=== PATIENT | male | born 1950 | race Caucasian/White ===

== ENCOUNTER 2017-06-21 15:46 | Inpatient (IN) | payer OTHER ==
[2017-06-21 17:38] VITALS: BMI 27.4
--- NOTE | 2017-06-21 18:51 | HP ---
CIWA Score - CIWA Score Nausea/Vomitin-No Nausea/No Vomiting Muscle Tremors: None Anxiety: 1-Mildly Anxious Agitation: 1-Slight > Activity Paroxysmal Sweats: No Perspiration Orientation: 0-Oriented Tacttile Disturbances: 0-None Auditory Disturbances: 0-None Visual Disturbances: 0-None Headache: 0-None Present CIWA-Ar Total Score: 2 Admission ROS [facility] - Ebola screening Have you traveled outside of the country in the last 21 days: No Have you had contact with anyone from an Ebola affected area: No Have you been sick,other than usual withdrawal symptoms: No Do you have a fever: No Patient History - Smoking Cessation Smoking history: Smoker current status UNK Have you smoked in the past 12 months: No Hx Chewing Tobacco Use: No Initiated information on smoking cessation: No Admission Physical Exam [facility] - Vital Signs Vital Signs: Vital Signs - 24 hr 06/21/17 17:35 Temperature 98.1 F Pulse Rate 79 Respiratory 18 Rate Blood Pressure 135/79 Screened but not Admitted - Documentation of Visit Screened but not Admitted: Yes Left Prior to Completion of Assessment: No Insurance Authorization Denied: No Patient Does Not Meet Criteria for Admission: No Level of Care Recommended at this Time: ER Evaluation/Care Alternative Treatment/Correction Info Provided: No Additional Information/Explanation: 67 years old male first admission to [facility], requests xanax, methadone detox, denies alcohol drinking, ciwa=2, reports xanax prescription monthly last visit 05/31/17, on methadone 50 mg daily, last dose , patient agrees to discuss xanax taper with primary care provider and methadone taper with program. patient states he is going to have a seizure, ambulance was called, information provided to er. [facility] Breath Alcohol Content Breath Alcohol Content: 0 Vital Signs - Vital Signs Vital Signs Refused: No Temperature: 98.1 F Temperature Source: Oral Pulse Rate: 79 Respiratory Rate: 18 Blood Pressure: 135/79 BP Location: Left Arm Blood Pressure Position: Sitting - Height Height: 5 ft 4 in - Weight Weight: 160 lb Weight Measurement Method: Standing Scale Body Mass Index (BMI): 27.4 - Bowel Function Bowel Movement: Yes Urine Drug Screen - Control Is Test Valid: Yes - Results Drug Screen Negative: No Urine Drug Screen Results: BZO-Benzodiazepines, MTD-Methadone
--- NOTE | 2017-06-22 00:46 | HP ---
CIWA Score - CIWA Score Nausea/Vomitin Muscle Tremors: 3 Anxiety: 2 Agitation: 1-Slight > Activity Paroxysmal Sweats: 1-Minimal Palms Moist Orientation: 2-Disoriented Date<2 days Tacttile Disturbances: 0-None Auditory Disturbances: 0-None Visual Disturbances: 1-Very Mild Sensitivity Headache: 1-Very Mild CIWA-Ar Total Score: 13 Admission ROS S - HPI Chief Complaint: Withdrawal symptoms Allergies/Adverse Reactions: Allergies Allergy/AdvReac Type Severity Reaction Status Date / Time No Known Allergies Allergy Verified 06/21/17 20:57 History of Present Illness: 67 y.o. man with a history of Xanax dependence is here seeking detox services. He is prescribed Xanax by his psychiatrist and reports he is taking them more than they are prescribed. He last completed detox 2 years ago. Currently enrolled in [facility]. Exam Limitations: No Limitations - Ebola screening Have you traveled outside of the country in the last 21 days: No Have you had contact with anyone from an Ebola affected area: No Have you been sick,other than usual withdrawal symptoms: No Do you have a fever: No - Review of Systems Constitutional: Chills, Diaphoresis, Loss of Appetite, Changes in sleep EENT: reports: Tearing Respiratory: reports: No Symptoms reported Cardiac: reports: No Symptoms Reported GI: reports: Abdominal cramping : reports: No Symptoms Reported Musculoskeletal: reports: No Symptoms Reported Integumentary: reports: No Symptoms Reported Neuro: reports: Tremors Endocrine: reports: No Symptoms Reported Hematology: reports: Anemia Psychiatric: reports: Mood/Affect Appropiate, Anxious, Depressed Other Systems: Reviewed and Negative Patient History - Patient Medical History Hx Anemia: No Hx Asthma: No Hx Chronic Obstructive Pulmonary Disease (COPD): No Hx Cancer: No Hx Cardiac Disorders: No Hx Congestive Heart Failure: No Hx Hypertension: Yes Hx Hypercholesterolemia: No Hx Pacemaker: No HX Cerebrovascular Accident: No Hx Seizures: No Hx Dementia: No Hx Diabetes: No Hx Gastrointestinal Disorders: No Hx Liver Disease: No Hx Genitourinary Disorders: No Hx Sexually Transmitted Disorders: No Hx Thyroid Disease: No Hx Human Immunodeficiency Virus (HIV): No Hx Hepatitis C: No Hx Depression: Yes Hx Suicide Attempt: No Hx Bipolar Disorder: No Hx Schizophrenia: No - Patient Surgical History Past Surgical History: Yes Other Surgical History: Cataract removal sx-left eye 05/2017 Anesthesia Reaction: No - PPD History Previous Implant?: Yes Documented Results: Negative w/o proof PPD to be Administered?: Yes - Reproductive History Patient is a Female of Child Bearing Age (11 -55 yrs old): No - Smoking Cessation Smoking history: Current every day smoker Have you smoked in the past 12 months: Yes Aproximately how many cigarettes per day: 15 Hx Chewing Tobacco Use: No Initiated information on smoking cessation: Yes 'Breaking Loose' booklet given: 06/22/17 - Substance & Tx. History Hx Alcohol Use: No Hx Substance Use: Yes Substance Use Type: Heroin, Prescribed (Xanax) Hx Substance Use Treatment: Yes (Detox: 2014; Rehab: 2015; currently in a [facility] ) - Substances Abused Alprazolam (Xanax) Route: Oral Frequency: Daily Amount used: 24mg Age of first use: 21 Date of Last Use: 06/21/17 Family Disease History - Family Disease History Family Disease History: Diabetes: Mother, CA: Father (Colon CA ), Other: Brother (Heroin dependence; ) Admission Physical Exam [facility] - Vital Signs Vital Signs: Vital Signs - 24 hr 06/21/17 06/21/17 17:35 18:59 Temperature 98.1 F 98.1 F Pulse Rate 79 79 Respiratory 18 18 Rate Blood Pressure 135/79 135/79 - Physical General Appearance: Yes: Disheveled, Anxious HEENTM: Yes: Normocephalic, Normal Voice Respiratory: Yes: Chest Non-Tender, Lungs Clear, Normal Breath Sounds, No Respiratory Distress, No Accessory Muscle Use Neck: Yes: No masses,lesions,Nodules, Trachea in good position Breast: Yes: Breast Exam Deferred Cardiology: Yes: Regular Rhythm, Regular Rate Abdominal: Yes: Non Tender, Flat, Soft Genitourinary: Yes: Other (No complaints reported) Back: Yes: Normal Inspection Musculoskeletal: Yes: Joint Stiffness Extremities: Yes: Normal Inspection, Normal Range of Motion, Non-Tender Neurological: Yes: Alert, Normal Mood/Affect, Normal Response Integumentary: Yes: Normal Color, Dry, Warm Lymphatic: Yes: Within Normal Limits - Diagnostic (1) Opioid dependence on agonist therapy Current Visit: Yes Status: Chronic (2) Sedative, hypnotic or anxiolytic dependence with withdrawal, uncomplicated Current Visit: Yes Status: Chronic (3) Nicotine dependence Current Visit: Yes Status: Chronic Qualified Code(s): - (4) Hypertension Current Visit: Yes Status: Chronic (5) Hard of hearing Current Visit: Yes Status: Chronic Cleared for Admission [facility] - Detox or Rehab [facility] Level of Care: Medically Managed Detox Regimen/Protocol: Valium BHS Breath Alcohol Content Breath Alcohol Content: 0 Vital Signs - Vital Signs Vital Signs Refused: No Temperature: 98.1 F Temperature Source: Oral Pulse Rate: 79 Respiratory Rate: 16 Blood Pressure: 135/79 BP Location: Left Arm Blood Pressure Position: Sitting - Height Height: 5 ft 4 in - Weight Weight: 160 lb Weight Measurement Method: Standing Scale Body Mass Index (BMI): 27.4 Urine Drug Screen - Results Drug Screen Negative: No Urine Drug Screen Results: BZO-Benzodiazepines, MTD-Methadone
[2017-06-22] MEDS ORDERED: IBUPROFEN 400 MG TABLET (FP) PO PRN (01:13)
[2017-06-22] MEDS ORDERED: ACETAMINOPHEN 325 MG TABLET (FP) PO PRN (01:13)
[2017-06-22] MEDS ORDERED: MAG HYDROX/AL HYDROX/SIMETH 30 ML UNIT-DOSE CUP PO PRN (01:13)
[2017-06-22] MEDS ORDERED: P-EPHED 60MG/TRIPROLIDI 2.5MG TABLET PO PRN (01:13)
[2017-06-22] MEDS ORDERED: MAGNESIUM CITRATE 300 ML BOTTLE PO PRN (01:13)
[2017-06-22] MEDS ORDERED: MENTHOL/PHENOL 1 EACH UD MM PRN (01:13)
[2017-06-22] MEDS ORDERED: guaiFENesin/D-METHORPHAN HB 10 ML UNIT-DOSE CUPS PO PRN (01:13)
[2017-06-22] MEDS ORDERED: LOPERAMIDE HCL 2 MG CAPSULE PO PRN (01:13)
[2017-06-22] MEDS ORDERED: diazePAM 5 MG TABLET PO ONE (01:13)
[2017-06-22] MEDS: diphenhydrAMINE HCL 50 MG CAPSULE PO PRN (01:41)
[2017-06-22] MEDS: diazePAM 5 MG TABLET PO SCH ×3 (05:36→22:16)
[2017-06-22] MEDS: NICOTINE POLACRILEX 2 MG GUM BC PRN ×2 (05:55→09:41)
[2017-06-22] MEDS ORDERED: METHADONE HCL 40 MG DISPERSABLE TABLET PO SCH (07:30)
[2017-06-22] MEDS ORDERED: METHADONE HCL 10 MG TABLET ONE (07:52)
[2017-06-22] MEDS ORDERED: METHADONE HCL 40 MG DISPERSABLE TABLET ONE (07:53)
[2017-06-22] MEDS: METHADONE 40 MG, METHADONE 10 MG PO SCH (07:57)
[2017-06-22] MEDS: MAGNESIUM HYDROX 2400MG/30ML ORAL SUSPENSION 30 ML CUP PO PRN (07:57)
[2017-06-22] MEDS: diazePAM 5 MG TABLET PO PRN ×2 (09:41→16:35)
[2017-06-22] MEDS: PRENATAL VITAMINS W/ FOLIC ACID TABLET (FP) PO SCH (09:41)
[2017-06-22] MEDS: NICOTINE 14 MG/24 HOURS TOPICAL PATCH TD SCH (09:43)
[2017-06-22 12:09] LABS: URINE APPEARANCE CLEAR; URINE BILIRUBIN NEGATIVE (NEGATIVE); URINE BLOOD NEGATIVE (NEGATIVE); URINE COLOR LTYELLOW; URINE GLUCOSE (UA) NEGATIVE (NEGATIVE); URINE KETONE NEGATIVE (NEGATIVE); URINE LEUK ESTERASE NEGATIVE (NEGATIVE); URINE NITRITE NEGATIVE (NEGATIVE); URINE PROTEIN NEGATIVE (NEGATIVE); URINE UROBILINOGEN NEGATIVE mg/dL (0.2-1.0)
--- NOTE | 2017-06-22 12:21 | PN ---
[facility] CIWA - CIWA Score Nausea/Vomitin Muscle Tremors: 4-Moderate,w/Arms Extend Anxiety: 3 Agitation: 2 Paroxysmal Sweats: 3 Orientation: 0-Oriented Tacttile Disturbances: 2-Mild Itch/Numbness/Burn Auditory Disturbances: 2-Mild Harshness/Frighten Visual Disturbances: 2-Mild Sensitivity Headache: 0-None Present CIWA-Ar Total Score: 21 BHS Progress Note (SOAP) Subjective: Nausea, Constipation, Sweating, Hot / Cold Sensations, Tremors. Objective: PT. A & O X 3, OBSERVED AMBULATING ON UNIT. NO ACUTE DISTRESS. PT. DENIES CHEST PAIN. 06/22/17 12:17 Vital Signs Temperature 97.5 F L 06/22/17 09:16 Pulse Rate 87 06/22/17 09:16 Respiratory Rate 18 06/22/17 09:16 Blood Pressure 160/98 06/22/17 09:16 O2 Sat by Pulse Oximetry (%) 06/22/17 12:20 ADMISSION LABS NOTED. ADMISSION RPR AND UA RESULTS PENDING. Assessment: 06/22/17 12:19 WITHDRAWAL SYMPTOMS. Plan: CONTINUE DETOX. REPEAT CBC ON 06/23/2017 FOR ABNORMAL ADMISSION PLATELET AND WBC VALUES. COLACE, 100 MG PO BID, PRN MOM PO FOR CONSTIPATION.
[2017-06-22] MEDS: DOCUSATE SODIUM 100 MG CAPSULE (FP) PO SCH ×2 (12:30→22:16)
--- NOTE | 2017-06-22 12:40 | CONSULT ---
[facility] Psychiatric Consult - Data Date of interview: 06/22/17 Admission source: [facility] Identifying data: First admission to 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 Substance Abuse History: Confirmed by patient in this interview. Smoking Cessation. Smoking history: Current every day smoker. Have you smoked in the past 12 months: Yes. Aproximately how many cigarettes per day: 15. Hx Chewing Tobacco Use: No. Initiated information on smoking cessation: Yes. 'Breaking Loose' booklet given: 06/22/17. - Substance & Tx. History. Hx Alcohol Use: No. Hx Substance Use: Yes. Substance Use Type: Heroin, Prescribed (Xanax). Hx Substance Use Treatment: Yes (Detox: 2014; Rehab: 2015; currently in a [facility] ) . - Substances Abused. Alprazolam (Xanax). Route: Oral. Frequency: Daily. Amount used: 24mg. Age of first use: 21. Date of Last Use: 06/21/17 Medical History: Hypertension,bronchial asthma and a history of thrombocytopenia (self-report).Noted recent history of eye surgery (extraction of cataracts in left eye).Decreased hearing. Psychiatric History: No reported history of psychiatric hospitalizations.Diagnosed with Bipolar Disorder.Prescribed xanax,seroquel and depakote (doses not recalled).Mr Mcmanus reports OPD care at the [facility] mental health clinic in [facility].He endorses adequate adherence to outpatient care and he denies history of suicide attempts.Patient is currently on methadone maintenance (50 mg/day) at the [facility] in the [place]. Physical/Sexual Abuse/Trauma History: Patient denies. Additional Comment: Urine Drug Screen Results: BZO-Benzodiazepines, MTD- Methadone.Noted. Mental Status Exam - Mental Status Exam Alert and Oriented to: Time, Place, Person Cognitive Function: Good Patient Appearance: Well Groomed Mood: Hopeful, Euthymic Affect: Appropriate, Normal Range Patient Behavior: Fatigued, Appropriate, Cooperative Speech Pattern: Clear Voice Loudness: Normal Thought Process: Intact, Goal Oriented Thought Disorder: Not Present Hallucinations: Denies Suicidal Ideation: Denies Homicidal Ideation: Denies Insight/Judgement: Poor Sleep: Poorly, Difficulty falling asleep Appetite: Good Muscle strength/Tone: Normal Gait/Station: Normal Psychiatric Findings - Problem List ([place] 1, 2,3) (1) Opioid dependence on agonist therapy Current Visit: Yes Status: Chronic (2) Sedative, hypnotic or anxiolytic dependence with withdrawal, uncomplicated Current Visit: Yes Status: Acute (3) Nicotine dependence Current Visit: Yes Status: Acute Qualifiers: Nicotine product type: cigarettes Substance use status: uncomplicated Qualified Code(s): F17.210 - Nicotine dependence, cigarettes, uncomplicated (4) Bipolar disorder Current Visit: Yes Status: Chronic Comment: Self-report. (5) Hard of hearing Current Visit: Yes Status: Chronic Qualifiers: Hearing loss type: unspecified Laterality: unspecified laterality Qualified Code(s): H91.90 - Unspecified hearing loss, unspecified ear (6) Hypertension Current Visit: Yes Status: Chronic Qualifiers: Hypertension type: essential hypertension Qualified Code(s): I10 - Essential (primary) hypertension (7) Insomnia Current Visit: Yes Status: Acute - Initial Treatment Plan Initial Treatment Plan: Psychoeducation.Detoxification.Medications : seroquel 50 mg po hs.Contact made with pharmacist at [facility] # [id number] : no evidence of depakote;only seroquel 50 mg/hs.Side effects/benefits discussed with patient.Consent (verbal) given for implementation of this careplan.Observation.Pharmacy claims reviewed : not helpful.No data.
--- NOTE | 2017-06-22 13:33 | PN ---
[facility] Progress Note Note: Patient reports bruise on Right Forearm since earlier this AM. Patient reports history of Thrombocytopenia, for which he has been evaluated by a phlebotomist medical lab assistant. Patient reports that personal injury law specialist advised him to monitor Platelet levels over time. Bruise noted on Right forearm, near Ulna. No bleeding or unusual discharge noted at site. Patient denies any unusual bleeding (when brushing teeth, nosebleed, etc). Patient advised to be cautious when moving about unit so as not to inadvertently bump into anything. Patient also advised to follow-up with Current Medical Provider LUCAS Choudhury from [facility] ([facility]) for further evaluation after discharge from Detox. Pt. verbalized understanding of recommendation. Quita Burden NP
[2017-06-22] MEDS: QUEtiapine FUMARATE 50 MG TABLET PO SCH (22:16)
[2017-06-22] MEDS: THIAMINE HCL 100 MG TABLET (FP) PO SCH (22:33)
[2017-06-23] MEDS ORDERED: METHADONE HCL 10 MG TABLET ONE (03:25)
[2017-06-23] MEDS ORDERED: METHADONE HCL 40 MG DISPERSABLE TABLET ONE (03:25)
[2017-06-23] MEDS: METHADONE 40 MG, METHADONE 10 MG PO SCH (05:35)
[2017-06-23] MEDS: diazePAM 5 MG TABLET PO SCH ×3 (05:35→22:10)
[2017-06-23] MEDS: MAGNESIUM HYDROX 2400MG/30ML ORAL SUSPENSION 30 ML CUP PO PRN (05:35)
[2017-06-23] MEDS: NICOTINE POLACRILEX 2 MG GUM BC PRN ×2 (06:10→18:09)
[2017-06-23] MEDS ORDERED: cloNIDine HCL 0.1 MG TABLET PO ONE ×2 (08:15→13:15)
[2017-06-23 10:02] LABS: BASOPHIL 0.6 % (0-2.0); EOSINOPHIL 0.9 % (0-4.5); MCH 30.1 pg (25.7-33.7); MCHC 32.6 g/dl (32.0-35.9); MEAN CELL VOLUME 92.2 fl (80-96); MEAN PLT VOLUME 14.9 fl (7.5-11.1); NEUTROPHILS 77.5 % (42.8-82.8); PLATELET COUNT 43 K/MM3 (134-434); RDW 13.3 % (11.9-15.9); WHITE BLOOD COUNT 13.9 K/mm3 (4.0-10.0)
[2017-06-23] MEDS: DOCUSATE SODIUM 100 MG CAPSULE (FP) PO SCH ×2 (10:14→22:10)
[2017-06-23] MEDS: PRENATAL VITAMINS W/ FOLIC ACID TABLET (FP) PO SCH (10:15)
[2017-06-23] MEDS: diazePAM 5 MG TABLET PO PRN ×3 (10:15→20:30)
[2017-06-23] MEDS: NICOTINE 14 MG/24 HOURS TOPICAL PATCH TD SCH (10:29)
--- NOTE | 2017-06-23 12:55 | PN ---
[facility] CIWA - CIWA Score Nausea/Vomitin-Mild Nausea/No Vomiting Muscle Tremors: 4-Moderate,w/Arms Extend Anxiety: 4-Mod. Anxious/Guarded Agitation: 3 Paroxysmal Sweats: No Perspiration Orientation: 0-Oriented Tacttile Disturbances: 2-Mild Itch/Numbness/Burn Auditory Disturbances: 2-Mild Harshness/Frighten Visual Disturbances: 0-None Headache: 0-None Present CIWA-Ar Total Score: 16 BHS Progress Note (SOAP) Subjective: Anxious, Stomach Cramping, Interrupted Sleep. Objective: PT. A & O X 3, OBSERVED AMBULATING ON UNIT. NO ACUTE DISTRESS. 06/23/17 12:51 Vital Signs Temperature 98.8 F 06/23/17 09:20 Pulse Rate 71 06/23/17 09:20 Respiratory Rate 18 06/23/17 09:20 Blood Pressure 173/110 06/23/17 09:20 O2 Sat by Pulse Oximetry (%) Laboratory Tests 06/22/17 06/23/17 09:30 08:40 WBC 13.9 H RBC 4.60 Hgb 13.9 Hct 42.4 MCV 92.2 MCH 30.1 MCHC 32.6 RDW 13.3 Plt Count 43 L MPV 14.9 H D Neutrophils % 77.5 D Lymphocytes % 16.0 D Monocytes % 5.0 Eosinophils % 0.9 Basophils % 0.6 Urine Color Ltyellow Urine Appearance Clear Urine pH 6.0 Ur Specific [place] 1.015 Urine Protein Negative Urine Glucose (UA) Negative Urine Ketones Negative Urine Blood Negative Urine Nitrite Negative Urine Bilirubin Negative Urine Urobilinogen Negative Ur Leukocyte Esterase Negative LABS NOTED. RESULTS OF REPEAT CBC NOTED. 06/23/17 12:54 Assessment: 06/23/17 12:51 WITHDRAWAL SYMPTOMS. Plan: CONTINUE DETOX. CLONIDINE, 01. MG PO X 1 FOR ELEVATED BP AND FOR DETOX SYMPTOMS.
--- NOTE | 2017-06-23 12:57 | EKG ---
Test Reason : Blood Pressure : / mmHG Vent. Rate : 056 BPM Atrial Rate : 056 BPM P-R Int : 132 ms QRS Dur : 088 ms QT Int : 420 ms P-R-T Axes : 063 037 053 degrees QTc Int : 405 ms SINUS BRADYCARDIA OTHERWISE NORMAL ECG NO PREVIOUS ECGS AVAILABLE Confirmed by DARNELL WHITMAN, FAWAD ([id number]) on 06/23/2017 12:56:50 PM Referred By: Confirmed By:FAWAD PATRICK MD
[2017-06-23] MEDS: hydrOXYzine PAMOATE 50 MG CAPSULE (FP) PO PRN (15:45)
[2017-06-23] MEDS: QUEtiapine FUMARATE 50 MG TABLET PO SCH (22:10)
[2017-06-23] MEDS: THIAMINE HCL 100 MG TABLET (FP) PO SCH (22:10)
[2017-06-23] MEDS: diphenhydrAMINE HCL 50 MG CAPSULE PO PRN (23:09)
[2017-06-24] MEDS: diazePAM 5 MG TABLET PO PRN ×3 (00:51→17:14)
[2017-06-24] MEDS: diphenhydrAMINE HCL 50 MG CAPSULE PO PRN ×2 (00:52→22:16)
[2017-06-24] MEDS: hydrOXYzine PAMOATE 50 MG CAPSULE (FP) PO PRN ×2 (02:42→18:41)
[2017-06-24] MEDS ORDERED: METHADONE HCL 10 MG TABLET ONE (03:32)
[2017-06-24] MEDS ORDERED: METHADONE HCL 40 MG DISPERSABLE TABLET ONE (03:32)
[2017-06-24] MEDS: METHADONE 40 MG, METHADONE 10 MG PO SCH (05:33)
[2017-06-24] MEDS ORDERED: cloNIDine HCL 0.1 MG TABLET PO ONE (07:31)
[2017-06-24] MEDS: DOCUSATE SODIUM 100 MG CAPSULE (FP) PO SCH ×2 (10:25→22:15)
[2017-06-24] MEDS: diazePAM 5 MG TABLET PO SCH ×2 (10:25→22:15)
[2017-06-24] MEDS: PRENATAL VITAMINS W/ FOLIC ACID TABLET (FP) PO SCH (10:25)
[2017-06-24] MEDS: NICOTINE 14 MG/24 HOURS TOPICAL PATCH TD SCH (10:27)
--- NOTE | 2017-06-24 12:27 | PN ---
BHS Progress Note (SOAP) Subjective: Anxious, Tremors, Constipation, H/A, Sweating. Objective: PT. A & O X 3, OBSERVED AMBULATING ON UNIT. NO ACUTE DISTRESS. PT. DENIES CHEST PAIN. 06/24/17 12:24 Vital Signs Temperature 98.0 F 06/24/17 09:46 Pulse Rate 20 L 06/24/17 09:46 Respiratory Rate 18 06/24/17 09:46 Blood Pressure 166/113 06/24/17 09:46 O2 Sat by Pulse Oximetry (%) Laboratory Tests 06/22/17 06/22/17 06/23/17 06:00 09:30 08:40 WBC 13.9 H RBC 4.60 Hgb 13.9 Hct 42.4 MCV 92.2 MCH 30.1 MCHC 32.6 RDW 13.3 Plt Count 43 L MPV 14.9 H D Neutrophils % 77.5 D Lymphocytes % 16.0 D Monocytes % 5.0 Eosinophils % 0.9 Basophils % 0.6 Urine Color Ltyellow Urine Appearance Clear Urine pH 6.0 Ur Specific [place] 1.015 Urine Protein Negative Urine Glucose (UA) Negative Urine Ketones Negative Urine Blood Negative Urine Nitrite Negative Urine Bilirubin Negative Urine Urobilinogen Negative Ur Leukocyte Esterase Negative RPR Titer Nonreactive LABS NOTED. Assessment: 06/24/17 12:25 WITHDRAWAL SYMPTOMS. Plan: CONTINUE DETOX.
--- NOTE | 2017-06-24 14:51 | PN ---
S Progress Note Note: Amlodipine, 10 mg PO Daily (First dose Now) started for elevated BP. Quita Burden [employer]
[2017-06-24] MEDS: amLODIPine BESYLATE 10 MG TABLET (FP) PO SCH (15:41)
[2017-06-24] MEDS: NICOTINE POLACRILEX 2 MG GUM BC PRN (15:43)
--- NOTE | 2017-06-24 17:10 | PN ---
S Progress Note Note: RECEIVED NURSE REPORTS BP 163/93 RECOMMEND VALIUM 10 MG PRN ONE DOSE NOW REPEAT BP AT 1900 CONTINUE XANAX DETOX
[2017-06-24] MEDS: THIAMINE HCL 100 MG TABLET (FP) PO SCH (22:15)
[2017-06-24] MEDS: QUEtiapine FUMARATE 50 MG TABLET PO SCH (22:15)
[2017-06-25] MEDS: hydrOXYzine PAMOATE 50 MG CAPSULE (FP) PO PRN (01:53)
[2017-06-25] MEDS ORDERED: METHADONE HCL 10 MG TABLET ONE (01:55)
[2017-06-25] MEDS ORDERED: METHADONE HCL 40 MG DISPERSABLE TABLET ONE (01:55)
[2017-06-25] MEDS: METHADONE 40 MG, METHADONE 10 MG PO SCH (05:04)
[2017-06-25] MEDS: DOCUSATE SODIUM 100 MG CAPSULE (FP) PO SCH ×2 (10:10→22:07)
[2017-06-25] MEDS: PRENATAL VITAMINS W/ FOLIC ACID TABLET (FP) PO SCH (10:10)
[2017-06-25] MEDS: amLODIPine BESYLATE 10 MG TABLET (FP) PO SCH (10:10)
[2017-06-25] MEDS: diazePAM 5 MG TABLET PO SCH ×2 (10:11→22:07)
[2017-06-25] MEDS: NICOTINE 14 MG/24 HOURS TOPICAL PATCH TD SCH (10:11)
--- NOTE | 2017-06-25 11:19 | PN ---
BHS Progress Note (SOAP) Subjective: pt feeling better , sweats occas. Objective: 06/25/17 11:14 Vital Signs Temperature 97.2 F L 06/25/17 10:17 Pulse Rate 94 H 06/25/17 10:17 Respiratory Rate 20 06/25/17 10:17 Blood Pressure 158/110 06/25/17 10:17 O2 Sat by Pulse Oximetry (%) Laboratory Tests 06/22/17 06/22/17 06/23/17 06:00 09:30 08:40 WBC 13.9 H RBC 4.60 Hgb 13.9 Hct 42.4 MCV 92.2 MCH 30.1 MCHC 32.6 RDW 13.3 Plt Count 43 L MPV 14.9 H D Neutrophils % 77.5 D Lymphocytes % 16.0 D Monocytes % 5.0 Eosinophils % 0.9 Basophils % 0.6 Urine Color Ltyellow Urine Appearance Clear Urine pH 6.0 Ur Specific [place] 1.015 Urine Protein Negative Urine Glucose (UA) Negative Urine Ketones Negative Urine Blood Negative Urine Nitrite Negative Urine Bilirubin Negative Urine Urobilinogen Negative Ur Leukocyte Esterase Negative RPR Titer Nonreactive pt aox3 in nad ambulating Assessment: 06/25/17 11:15 withdrawal sx's Plan: cont, detox increase fluids d/c in am
[2017-06-25] MEDS: QUEtiapine FUMARATE 50 MG TABLET PO SCH (22:07)
[2017-06-25] MEDS: THIAMINE HCL 100 MG TABLET (FP) PO SCH (22:07)
[2017-06-25] MEDS: diphenhydrAMINE HCL 50 MG CAPSULE PO PRN (22:08)
[2017-06-26] MEDS: diphenhydrAMINE HCL 50 MG CAPSULE PO PRN (00:35)
[2017-06-26] MEDS ORDERED: METHADONE HCL 10 MG TABLET ONE (03:31)
[2017-06-26] MEDS ORDERED: METHADONE HCL 40 MG DISPERSABLE TABLET ONE (03:31)
[2017-06-26] MEDS: METHADONE 40 MG, METHADONE 10 MG PO SCH (05:45)
[2017-06-26] MEDS: hydrOXYzine PAMOATE 50 MG CAPSULE (FP) PO PRN (05:46)
[2017-06-26] MEDS ORDERED: diazePAM 5 MG TABLET PO SCH (10:00)
[2017-06-26] MEDS: amLODIPine BESYLATE 10 MG TABLET (FP) PO SCH (10:11)
[2017-06-26] MEDS: PRENATAL VITAMINS W/ FOLIC ACID TABLET (FP) PO SCH (10:11)
[2017-06-26] MEDS: DOCUSATE SODIUM 100 MG CAPSULE (FP) PO SCH (10:11)
[2017-06-26] MEDS: NICOTINE 14 MG/24 HOURS TOPICAL PATCH TD SCH (10:12)
[2017-06-26 10:20] VITALS: BP 145/96; PULSE 81; TEMP 98
--- NOTE | 2017-06-26 19:34 | DS ---
[facility] Detox Discharge Summary Admission Date: 06/22/17 Discharge Date: 06/26/17 - History Present History: Sedative Dependence, MMTP Additional Comments: PATIENT GOING HOME. PATIENT WILL RETURN TO [facility] ( [facility]MTP PROGRAM FOR FOLLOW-UP AFTERCARE. PATIENT WAS DISCHARGED FROM UNIT IN STABLE MEDICAL CONDITION. Pertinent Past History: Bipolar Disorder, Anxiety / Depression, Hard of Hearing, HTN, MMTP. - Physical Exam Results Vital Signs: Vital Signs Temperature 98.0 F 06/26/17 10:19 Pulse Rate 81 06/26/17 10:19 Respiratory Rate 16 06/26/17 10:19 Blood Pressure 145/96 06/26/17 10:19 O2 Sat by Pulse Oximetry (%) Pertinent Admission Physical Exam Findings: WITHDRAWAL SYMPTOMS. Laboratory Tests 06/22/17 06/22/17 06/23/17 06:00 09:30 08:40 WBC 13.9 H RBC 4.60 Hgb 13.9 Hct 42.4 MCV 92.2 MCH 30.1 MCHC 32.6 RDW 13.3 Plt Count 43 L MPV 14.9 H D Neutrophils % 77.5 D Lymphocytes % 16.0 D Monocytes % 5.0 Eosinophils % 0.9 Basophils % 0.6 Urine Color Ltyellow Urine Appearance Clear Urine pH 6.0 Ur Specific [place] 1.015 Urine Protein Negative Urine Glucose (UA) Negative Urine Ketones Negative Urine Blood Negative Urine Nitrite Negative Urine Bilirubin Negative Urine Urobilinogen Negative Ur Leukocyte Esterase Negative RPR Titer Nonreactive LABS NOTED. - Treatment Hospital Course: Detox Protocol Followed, Detoxed Safely, Responded well, Discharged Condition Good Patient has Accepted a Rehab Referral to: PATIENT WILL RETURN TO [facility] MMTP PROGRAM. - Medication Discharge Medications: Ambulatory Orders Quetiapine Fumarate [Seroquel -] 50 mg PO HS #30 tablet 06/22/17 Amlodipine Besylate 10 mg PO DAILY #30 tablet 06/26/17 Propranolol HCl [Inderal] 80 mg PO DAILY #30 mg 06/26/17 - Diagnosis (1) Hard of hearing Status: Chronic Qualifiers: Hearing loss type: unspecified Laterality: unspecified laterality Qualified Code(s): H91.90 - Unspecified hearing loss, unspecified ear (2) Hypertension Status: Chronic Qualifiers: Hypertension type: essential hypertension Qualified Code(s): I10 - Essential (primary) hypertension (3) Nicotine dependence Status: Chronic Qualifiers: Nicotine product type: cigarettes Substance use status: uncomplicated Qualified Code(s): F17.210 - Nicotine dependence, cigarettes, uncomplicated (4) Opioid dependence on agonist therapy Status: Chronic (5) Sedative, hypnotic or anxiolytic dependence with withdrawal, uncomplicated Status: Acute (6) Insomnia Status: Acute Qualifiers: Insomnia type: unspecified Qualified Code(s): G47.00 - Insomnia, unspecified (7) Bipolar disorder Status: Chronic Qualifiers: Active/Remission status: remission status unspecified Qualified Code (s): F31.9 - Bipolar disorder, unspecified - AMA Did Patient Leave Against Medical Advice: No
== END 2017-06-26 13:25 | disposition home or self-care (01) | DRG 897 ==
LOC: YASAS 15:46 → UNDOADMIN 06-22 00:38 → Y3N 06-22 00:38
PROVIDERS: ADMIT Internal Medicine; ATTEND Internal Medicine
PROC: HZ2ZZZZ Detoxification Services for Substance Abuse Treatment (ICD-10-PCS; principal; 2017-06-26)
DX: F11.20 Opioid dependence, uncomplicated (principal); F13.230 Sedative, hypnotic or anxiolytic dependence with withdrawal, uncomplicated; F17.210 Nicotine dependence, cigarettes, uncomplicated; F39 Unspecified mood [affective] disorder; G47.00 Insomnia, unspecified; I10 Essential (primary) hypertension; H91.90 Unspecified hearing loss, unspecified ear
CPT/HCPCS: 36415; 80053; 81003; 85025; 86593; 93005; 93010; 99282-25

== ENCOUNTER 2017-07-15 13:13 | Inpatient (IN) | payer OTHER ==
[2017-07-15 14:00] VITALS: BMI 25.7
--- NOTE | 2017-07-15 16:58 | HP ---
Admission [facility] Chief Complaint: I WANT TO GO TO REHAB Allergies/Adverse Reactions: Allergies Allergy/AdvReac Type Severity Reaction Status Date / Time Penicillins Allergy Severe Hives Verified 07/15/17 16:30 History of Present Illness: 67 YEARS OLD MALE WITH LONG HISTORY OF XANAX NICOTINE DEPENDENCE HAS HYPERTENSION, HARD OF HEARING BILATERALLY, METHADONE 50MG PO DAILY, HAS SEVERE GENERAL ANXIETY IS ADMITTED TO REHAB Exam Limitations: No Limitations - Ebola screening Have you traveled outside of the country in the last 21 days: No Have you had contact with anyone from an Ebola affected area: No Have you been sick,other than usual withdrawal symptoms: No Do you have a fever: No - Review of Systems Constitutional: Changes in sleep, Weight Stable EENT: reports: Blurred Vision (NEED EYE GLASSES), Hearing Loss (BOTH EARS HARD OF HEARING X "MANY YEARS") Respiratory: reports: No Symptoms reported Cardiac: reports: No Symptoms Reported GI: reports: Constipated : reports: No Symptoms Reported Musculoskeletal: reports: No Symptoms Reported Integumentary: reports: No Symptoms Reported Neuro: reports: No Symptoms reported Endocrine: reports: No Symptoms Reported Hematology: reports: No Symptoms Reported Psychiatric: reports: Judgement Intact, Orientated x3, Anxious Other Systems: Reviewed and Negative Patient History - Patient Medical History Hx Anemia: No Hx Asthma: No Hx Chronic Obstructive Pulmonary Disease (COPD): No Hx Cancer: No Hx Cardiac Disorders: No Hx Congestive Heart Failure: No Hx Hypertension: Yes Hx Hypercholesterolemia: No Hx Pacemaker: No HX Cerebrovascular Accident: No Hx Seizures: No Hx Dementia: No Hx Diabetes: No Hx Gastrointestinal Disorders: No Hx Liver Disease: No Hx Genitourinary Disorders: No Hx Sexually Transmitted Disorders: No Hx Renal Disease (ESRD): No Hx Thyroid Disease: No Hx Human Immunodeficiency Virus (HIV): No Hx Hepatitis C: No Hx Depression: Yes Hx Suicide Attempt: Yes (2016 OVERDOSE) Hx Bipolar Disorder: No Hx Schizophrenia: No - Patient Surgical History Past Surgical History: Yes Hx Neurologic Surgery: No Hx Cataract Extraction: Yes (05/2017) Hx Cardiac Surgery: No Hx Lung Surgery: No Hx Breast Surgery: No Hx Breast Biopsy: No Hx Abdominal Surgery: No Hx Appendectomy: No Hx Cholecystectomy: No Hx Genitourinary Surgery: No Hx Orthopedic Surgery: No Other Surgical History: Cataract removal sx-left eye 05/2017 Anesthesia Reaction: No - PPD History Previous Implant?: Yes Documented Results: Negative w/proof Implanted On Prior [facility] Admission?: Yes Date: 06/24/17 PPD to be Administered?: No - Smoking Cessation Smoking history: Current every day smoker Have you smoked in the past 12 months: Yes Aproximately how many cigarettes per day: 15 Cigars Per Day: 0 Hx Chewing Tobacco Use: No Initiated information on smoking cessation: Yes 'Breaking Loose' booklet given: 07/15/17 - Substance & Tx. History Hx Alcohol Use: No Hx Substance Use: Yes Substance Use Type: Tranquilizers Hx Substance Use Treatment: Yes (06/2017 [facility] - Substances Abused Alprazolam (Xanax) Route: Oral Frequency: Daily Amount used: 8-10mg Age of first use: 22 Date of Last Use: 07/06/17 Family Disease History - Family Disease History Family Disease History: Diabetes: Mother, CA: Father (Colon CA/), Other : Father, Brother (Heroin dependence; ) Admission Physical Exam S - Vital Signs Vital Signs: Vital Signs - 24 hr 07/15/17 13:57 Temperature 96.4 F L Pulse Rate 72 Respiratory 20 Rate Blood Pressure 130/100 - Physical General Appearance: Yes: No Apparent Distress, Nourished, Appropriately Dressed HEENTM: Yes: Normal Voice, Other (HARD OF HEARING BOTH EARS) Respiratory: Yes: Chest Non-Tender, Lungs Clear, Normal Breath Sounds, No Respiratory Distress, No Accessory Muscle Use Neck: Yes: Supple, Trachea in good position Breast: Yes: Breasts Symetrical Cardiology: Yes: Regular Rhythm, Regular Rate, S1, S2 Abdominal: Yes: Non Tender, Soft, Decreased BS Genitourinary: Yes: Within Normal Limits Back: Yes: Normal Inspection Musculoskeletal: Yes: full range of Motion, Gait Steady Extremities: Yes: Normal Inspection, Normal Range of Motion, Non-Tender Neurological: Yes: Fully Oriented, Alert, Motor Strength 5/5, Normal Response, Depressed Affect Integumentary: Yes: Warm Lymphatic: Yes: Within Normal Limits - Diagnostic (1) Sedative, hypnotic or anxiolytic dependence with withdrawal, uncomplicated Current Visit: Yes Status: Acute (2) Hard of hearing Current Visit: Yes Status: Chronic Qualifiers: Hearing loss type: mixed conductive and sensorineural Laterality: bilateral Qualified Code(s): 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, bilateral (3) Hypertension Current Visit: Yes Status: Chronic Qualifiers: Hypertension type: essential hypertension Qualified Code(s): I10 - Essential (primary) hypertension (4) Nicotine dependence Current Visit: Yes Status: Acute Qualifiers: Nicotine product type: cigarettes Substance use status: in withdrawal Qualified Code(s): F17.213 - Nicotine dependence, cigarettes, with withdrawal (5) Methadone maintenance therapy patient Current Visit: Yes Status: Chronic Comment: 50 MG VERIFICATION PENDING (6) Constipation Current Visit: Yes Status: Chronic Qualifiers: Constipation type: slow transit constipation Qualified Code(s): K59.01 - Slow transit constipation Cleared for Admission [facility] - Detox or Rehab [facility] Level of Care: Observation Bed Detox Regimen/Protocol: Not Applicable Claeared for Rehab Admission: Yes [facility] Breath Alcohol Content Breath Alcohol Content: 0 Urine Drug Screen - Results Drug Screen Negative: No Urine Drug Screen Results: BZO-Benzodiazepines, MTD-Methadone Inpatient Rehab Admission - Initial Determination Are CD services needed?: Yes Free of communicable disease: Yes Not in need of hospitalization: Yes - Rehab Admission Criteria Previous failed treatment: Yes Poor recovery environment: No Comorbidities: Yes Lacks judgement: No Patient is meeting Inpatient Rehab admission criteria:: Yes
[2017-07-15] MEDS ORDERED: P-EPHED 60MG/TRIPROLIDI 2.5MG TABLET PO PRN (17:15)
[2017-07-15] MEDS ORDERED: ACETAMINOPHEN 325 MG TABLET (FP) PO PRN (17:15)
[2017-07-15] MEDS ORDERED: guaiFENesin/D-METHORPHAN HB 10 ML UNIT-DOSE CUPS PO PRN (17:15)
[2017-07-15] MEDS ORDERED: MENTHOL/PHENOL 1 EACH UD MM PRN (17:15)
[2017-07-15] MEDS ORDERED: IBUPROFEN 400 MG TABLET (FP) PO PRN (17:15)
[2017-07-15] MEDS ORDERED: MAG HYDROX/AL HYDROX/SIMETH 30 ML UNIT-DOSE CUP PO PRN (17:15)
[2017-07-15] MEDS ORDERED: LOPERAMIDE HCL 2 MG CAPSULE PO PRN (17:15)
[2017-07-15] MEDS: THIAMINE HCL 100 MG TABLET (FP) PO SCH (22:02)
[2017-07-15] MEDS: BACLOFEN 10 MG TABLET (FP) PO SCH (22:02)
[2017-07-16 00:47] LABS: URINE APPEARANCE SLCLOUDY; URINE BILIRUBIN NEGATIVE (NEGATIVE); URINE BLOOD NEGATIVE (NEGATIVE); URINE COLOR YELLOW; URINE GLUCOSE (UA) NEGATIVE (NEGATIVE); URINE KETONE NEGATIVE (NEGATIVE); URINE LEUK ESTERASE NEGATIVE (NEGATIVE); URINE NITRITE NEGATIVE (NEGATIVE); URINE PROTEIN NEGATIVE (NEGATIVE); URINE UROBILINOGEN NEGATIVE mg/dL (0.2-1.0)
[2017-07-16] MEDS: hydrOXYzine PAMOATE 50 MG CAPSULE (FP) PO PRN (05:36)
[2017-07-16] MEDS: PSYLLIUM 5.85 GM PACKET PO SCH ×3 (07:40→17:47)
[2017-07-16] MEDS ORDERED: METHADONE HCL 10 MG TABLET PO SCH (07:45)
[2017-07-16] MEDS ORDERED: METHADONE HCL 10 MG TABLET ONE (08:37)
[2017-07-16] MEDS ORDERED: METHADONE HCL 40 MG DISPERSABLE TABLET ONE (08:37)
[2017-07-16] MEDS ORDERED: PT OWN MED DRAWER 7, Y5N ONE (08:38)
[2017-07-16] MEDS: METHADONE 40 MG, METHADONE 10 MG PO SCH (09:00)
[2017-07-16] MEDS: PRENATAL VITAMINS W/ FOLIC ACID TABLET (FP) PO SCH (09:12)
[2017-07-16] MEDS: BACLOFEN 10 MG TABLET (FP) PO SCH ×2 (09:12→21:21)
[2017-07-16] MEDS: NICOTINE 21 MG/24 HOURS TOPICAL PATCH TD SCH (10:45)
--- NOTE | 2017-07-16 14:01 | HP ---
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 Decreased hearing. Patient is on methadone 50mg/day Smokes 15 cigarettes daily Psychiatric History: Reports that he was diagnosed with NITESH in 1981 and has seen a lot of psychiatrists over the years. Reports currently receiving psychiatric treatment at [facility] in [place] but missed his last scheduled appointment on 07/05/17. He saw Dr Patiño recently while admitted to inpt detox in this facility and was prescribed Seroquel [address] Patiño listed his diagnosis as Bipolar Disorder. Review of Pharmacy claims shows that he filled scripts for Seroquel, Depakote, Xanax in the past. Denies history of previous hospitalization or suicidal attempt. At present reports feeling very anxious and depressed. Physical/Sexual Abuse/Trauma History: Denies history of emotional, physical or sexual abuse as well as DV relationship. No service Additional Comment: No criminal history Vital Signs: Vital Signs - 24 hr 07/16/17 07/16/17 07/16/17 00:30 06:46 09:29 Temperature 98.5 F Pulse Rate 74 84 Respiratory 18 18 Rate Blood Pressure 181/107 139/88 Allergies/Adverse Reactions: Allergies Allergy/AdvReac Type Severity Reaction Status Date / Time Penicillins Allergy Severe Hives Verified 07/15/17 16:30 Date of last physical exam: 07/15/17 Concur with the findings of this exam: Yes - Substance Abuse/Tx History Hx Alcohol Use: No Hx Substance Use: Yes Substance Use Type: Tranquilizers (Started using xanax at age 22, consumes 8-10 mg daily. Last used on 07/06/17) Hx Substance Use Treatment: Yes (Attends [facility]. 2 previous inpt detox & 2 inpt abel) - Admission Criteria Previous failed treatment: No Poor recovery environment: Yes Comorbidities: Yes Lacks judgement: Yes Mental Status Exam - Mental Status Exam Alert and Oriented to: Time, Place, Person Cognitive Function: Fair Patient Appearance: Well Groomed Mood: Depressed, Anxious Affect: Appropriate Patient Behavior: Cooperative Speech Pattern: Clear Voice Loudness: Normal Thought Process: Intact, Goal Oriented Thought Disorder: Not Present Hallucinations: Denies Suicidal Ideation: Denies Homicidal Ideation: Denies Insight/Judgement: Fair Sleep: Poorly Appetite: Good Muscle strength/Tone: Normal Gait/Station: Normal Psychiatric Findings - Problem List ([place] 1, 2,3) (1) Sedative, hypnotic or anxiolytic dependence Current Visit: Yes Status: Acute (2) Opioid dependence on agonist therapy Current Visit: No Status: Chronic (3) Nicotine dependence Current Visit: Yes Status: Acute (4) Hard of hearing Current Visit: Yes Status: Chronic Qualifiers: Hearing loss type: mixed conductive and sensorineural Laterality: bilateral Qualified Code(s): 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 2) Monitor progress
[2017-07-16 14:14] LABS: MCH 29.6 pg (25.7-33.7); MCHC 32.1 g/dl (32.0-35.9); MEAN CELL VOLUME 92.3 fl (80-96); MEAN PLT VOLUME 13.5 fl (7.5-11.1); PLATELET COUNT 64 K/MM3 (134-434); RDW 13.5 % (11.9-15.9); WHITE BLOOD COUNT 12.2 K/mm3 (4.0-10.0)
[2017-07-16 14:29] LABS: ALBUMIN 3.9 g/dl (3.4-5.0); ALK PHOS 112 U/L (45-117); ANION GAP 10 (8-16); BILIRUBIN,TOTAL 0.6 mg/dL (0.2-1.0); CALCIUM 9.3 mg/dL (8.5-10.1); CO2 28 mmol/L (21-32); GLUCOSE,RANDOM 153 mg/dL (74-106); SGOT/AST 27 U/L (15-37); SGPT/ALT 35 U/L (12-78)
[2017-07-16] MEDS: diphenhydrAMINE HCL 50 MG CAPSULE PO PRN (21:21)
[2017-07-16] MEDS: THIAMINE HCL 100 MG TABLET (FP) PO SCH (21:21)
[2017-07-16] MEDS: QUEtiapine FUMARATE 50 MG TABLET PO SCH (21:21)
[2017-07-17] MEDS ORDERED: METHADONE HCL 10 MG TABLET ONE (03:50)
[2017-07-17] MEDS ORDERED: METHADONE HCL 40 MG DISPERSABLE TABLET ONE (03:50)
[2017-07-17] MEDS: METHADONE 40 MG, METHADONE 10 MG PO SCH (06:14)
[2017-07-17] MEDS: PSYLLIUM 5.85 GM PACKET PO SCH ×3 (07:40→16:59)
[2017-07-17] MEDS: hydrOXYzine PAMOATE 50 MG CAPSULE (FP) PO PRN ×2 (07:59→21:44)
[2017-07-17] MEDS: BACLOFEN 10 MG TABLET (FP) PO SCH ×2 (10:38→21:43)
[2017-07-17] MEDS: PRENATAL VITAMINS W/ FOLIC ACID TABLET (FP) PO SCH (10:38)
[2017-07-17] MEDS: NICOTINE 21 MG/24 HOURS TOPICAL PATCH TD SCH (10:39)
[2017-07-17] MEDS: NICOTINE POLACRILEX 4 MG GUM BC PRN (10:40)
[2017-07-17] MEDS: QUEtiapine FUMARATE 50 MG TABLET PO SCH (21:43)
[2017-07-17] MEDS: THIAMINE HCL 100 MG TABLET (FP) PO SCH (21:43)
[2017-07-18] MEDS ORDERED: METHADONE HCL 10 MG TABLET ONE (04:16)
[2017-07-18] MEDS ORDERED: METHADONE HCL 40 MG DISPERSABLE TABLET ONE (04:16)
[2017-07-18] MEDS: METHADONE 40 MG, METHADONE 10 MG PO SCH (05:53)
[2017-07-18] MEDS: PSYLLIUM 5.85 GM PACKET PO SCH ×3 (07:02→16:58)
[2017-07-18] MEDS ORDERED: PT OWN MED DRAWER 7, Y5N ONE (08:33)
[2017-07-18] MEDS: PRENATAL VITAMINS W/ FOLIC ACID TABLET (FP) PO SCH (09:46)
[2017-07-18] MEDS: BACLOFEN 10 MG TABLET (FP) PO SCH ×2 (09:46→21:06)
[2017-07-18] MEDS: NICOTINE 21 MG/24 HOURS TOPICAL PATCH TD SCH (09:46)
[2017-07-18] MEDS: NICOTINE POLACRILEX 4 MG GUM BC PRN (09:47)
[2017-07-18] MEDS: hydrOXYzine PAMOATE 50 MG CAPSULE (FP) PO PRN (21:06)
[2017-07-18] MEDS: QUEtiapine FUMARATE 50 MG TABLET PO SCH (21:06)
[2017-07-18] MEDS: THIAMINE HCL 100 MG TABLET (FP) PO SCH (21:06)
[2017-07-19] MEDS ORDERED: METHADONE HCL 40 MG DISPERSABLE TABLET ONE (03:12)
[2017-07-19] MEDS ORDERED: METHADONE HCL 10 MG TABLET ONE (03:12)
[2017-07-19] MEDS: METHADONE 40 MG, METHADONE 10 MG PO SCH (06:06)
[2017-07-19] MEDS: PSYLLIUM 5.85 GM PACKET PO SCH ×3 (07:09→16:56)
[2017-07-19] MEDS: BACLOFEN 10 MG TABLET (FP) PO SCH ×2 (09:51→21:20)
[2017-07-19] MEDS: PRENATAL VITAMINS W/ FOLIC ACID TABLET (FP) PO SCH (09:51)
[2017-07-19] MEDS: NICOTINE POLACRILEX 4 MG GUM BC PRN (09:52)
[2017-07-19] MEDS: NICOTINE 21 MG/24 HOURS TOPICAL PATCH TD SCH (09:52)
--- NOTE | 2017-07-19 11:00 | PN ---
Psychiatric Progress Note Vital Signs: Vital Signs Period Temp Pulse Resp BP Sys/Quiroga Pulse Ox Last 24 Hr 98.3 F 79-80 18 147-157/90-96 Date of Session: 07/19/17 Chief Complaint:: Insomnia HPI: Patient addressing Sedative Dependence comorbid with Opoi Dependence on Agonist Therapy, Nicotine Dependence and Generalized Anxiety Disorder ROS: HTN, Hard of hearing Current Medications: Active Medications Generic Name Dose Route Start Last Admin Trade Name Freq PRN Reason Stop Dose Admin Acetaminophen 650 mg 07/15/17 17:15 Tylenol - PO Q4H PRN PAIN Al Hydroxide/Mg Hydroxide 30 ml 07/15/17 17:15 Mylanta Oral Suspension - PO Q6H PRN DYSPEPSIA Baclofen 10 mg 07/15/17 22:00 07/19/17 09:51 Lioresal - PO 10 mg BID REUBEN Administration Diphenhydramine HCl 50 mg 07/15/17 17:15 07/16/17 21:21 Benadryl - PO 50 mg HSMR1 PRN Administration INSOMNIA Eucalyptus/Menthol/Phenol/Sorbitol 1 each 07/15/17 17:15 07/16/17 03:15 Cepastat Lozenge - MM 1 each Q4H PRN Administration SORE THROAT Guaifenesin 10 ml 07/15/17 17:15 Robitussin Dm - PO Q6H PRN COUGH Hydroxyzine Pamoate 50 mg 07/15/17 17:15 07/18/17 21:06 Vistaril - PO 50 mg Q4H PRN Administration AGITATION Ibuprofen 400 mg 07/15/17 17:15 Motrin - PO Q6H PRN SEVERE PAIN Loperamide HCl 4 mg 07/15/17 17:15 Imodium - PO Q6H PRN DIARRHEA Magnesium Citrate 300 ml 07/15/17 17:15 Citroma - PO Q48H PRN CONSTIPATION Magnesium Hydroxide 30 ml 07/15/17 17:15 Milk Of Magnesia - PO DAILY PRN CONSTIPATION Methadone HCl 40 mg/ Methadone 50 mg 07/16/17 08:00 07/19/17 06:06 HCl 10 mg PO 50 mg DAILY@0600 REUBEN Administration Nicotine 21 mg 07/16/17 10:00 07/19/17 09:52 Nicoderm Patch - TD Not Given DAILY REUBEN Nicotine Polacrilex 4 mg 07/15/17 17:15 07/19/17 09:52 Nicorette Gum - BC 4 mg Q2H PRN Administration NICOTINE REPLACEMENT RX Multivit/Folic Acid/Iron 1 tab 07/16/17 10:00 07/19/17 09:51 Vitamins ([facility]) - PO 1 tab DAILY REUBEN Administration Propranolol HCl 80 mg 07/16/17 10:00 07/19/17 09:52 Inderal La - PO 80 mg DAILY REUBEN Administration Pseudoephedrine/Triprolidine 1 combo 07/15/17 17:15 Actifed - PO TID PRN NASAL CONGESTION Psyllium Hydrophilic Mucilloid 5.85 gm 07/16/17 08:00 07/19/17 07:09 Metamucil (Sugar-Free) - PO 5.85 gm TIDCM REUBEN Administration Quetiapine Fumarate 100 mg 07/19/17 22:00 Seroquel - PO HS REUBEN Thiamine HCl 100 mg 07/15/17 22:00 07/18/17 21:06 Vitamin B1 - PO 100 mg HS REUBEN Administration Medication(s) Change(s): Increase Seroquel dosage to 100 mg po HS Current Side Effect: No Lab tests ordered: Yes Lab tests reviewed: Yes Provider note:: Patient reports experiencing difficulty to sleep. Told senior grant writer that he has been sleeping poorly despite taking Seroquel 50 mg po HS. Total face to face time:: 25 Mental Status Exam - Mental Status Exam Alert and Oriented to: Time, Place, Person Cognitive Function: Fair Patient Appearance: Well Groomed Mood: Hopeful, Euthymic Affect: Appropriate Patient Behavior: Cooperative Speech Pattern: Clear Voice Loudness: Normal Thought Process: Intact, Goal Oriented Thought Disorder: Not Present Hallucinations: Denies Suicidal Ideation: Denies Homicidal Ideation: Denies Insight/Judgement: Fair Sleep: Poorly Appetite: Good Muscle strength/Tone: Normal Gait/Station: Normal Psychiatric Treatment Plan - Problem List (1) Sedative, hypnotic or anxiolytic dependence Current Visit: Yes (2) Opioid dependence on agonist therapy Current Visit: No (3) Nicotine dependence Current Visit: Yes (4) Hard of hearing Current Visit: Yes Qualifiers: Hearing loss type: mixed conductive and sensorineural Laterality: bilateral Qualified Code(s): 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 2) Start Seroquel 100 mg po HS. 3) Monitor progress
[2017-07-19] MEDS: hydrOXYzine PAMOATE 50 MG CAPSULE (FP) PO PRN ×2 (12:30→21:20)
--- NOTE | 2017-07-19 17:04 | EKG ---
Test Reason : Blood Pressure : / mmHG Vent. Rate : 068 BPM Atrial Rate : 068 BPM P-R Int : 124 ms QRS Dur : 084 ms QT Int : 384 ms P-R-T Axes : 046 009 030 degrees QTc Int : 408 ms NORMAL SINUS RHYTHM POSSIBLE LEFT ATRIAL ENLARGEMENT BORDERLINE ECG WHEN COMPARED WITH ECG OF 22-JUN-2017 00:44, NO SIGNIFICANT CHANGE WAS FOUND Confirmed by AALIYAH SUH MD ([id number]) on 07/19/2017 5:04:10 PM Referred By: Yenni Castellanos Confirmed By:AALIYAH SUH MD
[2017-07-19] MEDS: THIAMINE HCL 100 MG TABLET (FP) PO SCH (21:20)
[2017-07-19] MEDS: QUEtiapine FUMARATE 100 MG TABLET (FP) PO SCH (21:20)
[2017-07-19] MEDS: MAGNESIUM HYDROX 2400MG/30ML ORAL SUSPENSION 30 ML CUP PO PRN (21:59)
[2017-07-20] MEDS ORDERED: METHADONE HCL 10 MG TABLET ONE (03:32)
[2017-07-20] MEDS ORDERED: METHADONE HCL 40 MG DISPERSABLE TABLET ONE (03:32)
[2017-07-20] MEDS: METHADONE 40 MG, METHADONE 10 MG PO SCH (06:10)
[2017-07-20] MEDS: PSYLLIUM 5.85 GM PACKET PO SCH ×3 (07:05→19:42)
[2017-07-20] MEDS: BACLOFEN 10 MG TABLET (FP) PO SCH ×2 (09:25→21:41)
[2017-07-20] MEDS: PRENATAL VITAMINS W/ FOLIC ACID TABLET (FP) PO SCH (09:25)
[2017-07-20] MEDS: MAGNESIUM HYDROX 2400MG/30ML ORAL SUSPENSION 30 ML CUP PO PRN (09:26)
[2017-07-20] MEDS: NICOTINE 21 MG/24 HOURS TOPICAL PATCH TD SCH (10:39)
[2017-07-20] MEDS: QUEtiapine FUMARATE 100 MG TABLET (FP) PO SCH (21:41)
[2017-07-20] MEDS: THIAMINE HCL 100 MG TABLET (FP) PO SCH (21:41)
[2017-07-20] MEDS: hydrOXYzine PAMOATE 50 MG CAPSULE (FP) PO PRN (21:43)
[2017-07-21] MEDS: hydrOXYzine PAMOATE 50 MG CAPSULE (FP) PO PRN ×3 (03:10→16:56)
[2017-07-21] MEDS ORDERED: METHADONE HCL 40 MG DISPERSABLE TABLET ONE (04:32)
[2017-07-21] MEDS ORDERED: METHADONE HCL 10 MG TABLET ONE (04:32)
[2017-07-21] MEDS: METHADONE 40 MG, METHADONE 10 MG PO SCH (06:24)
[2017-07-21] MEDS: PSYLLIUM 5.85 GM PACKET PO SCH ×3 (07:46→16:56)
[2017-07-21] MEDS: BACLOFEN 10 MG TABLET (FP) PO SCH ×2 (09:46→21:11)
[2017-07-21] MEDS: NICOTINE 21 MG/24 HOURS TOPICAL PATCH TD SCH (09:46)
[2017-07-21] MEDS: PRENATAL VITAMINS W/ FOLIC ACID TABLET (FP) PO SCH (09:46)
[2017-07-21] MEDS: QUEtiapine FUMARATE 100 MG TABLET (FP) PO SCH (21:11)
[2017-07-21] MEDS: THIAMINE HCL 100 MG TABLET (FP) PO SCH (21:11)
[2017-07-21] MEDS: diphenhydrAMINE HCL 50 MG CAPSULE PO PRN (21:11)
[2017-07-22] MEDS ORDERED: METHADONE HCL 10 MG TABLET ONE (03:51)
[2017-07-22] MEDS ORDERED: METHADONE HCL 40 MG DISPERSABLE TABLET ONE (03:51)
[2017-07-22] MEDS: METHADONE 40 MG, METHADONE 10 MG PO SCH (05:59)
[2017-07-22] MEDS: PSYLLIUM 5.85 GM PACKET PO SCH ×3 (07:06→17:01)
[2017-07-22] MEDS: BACLOFEN 10 MG TABLET (FP) PO SCH ×2 (09:43→21:24)
[2017-07-22] MEDS: PRENATAL VITAMINS W/ FOLIC ACID TABLET (FP) PO SCH (09:43)
[2017-07-22] MEDS: NICOTINE 21 MG/24 HOURS TOPICAL PATCH TD SCH (09:44)
[2017-07-22] MEDS: NICOTINE POLACRILEX 4 MG GUM BC PRN (09:45)
[2017-07-22] MEDS: hydrOXYzine PAMOATE 50 MG CAPSULE (FP) PO PRN (17:00)
[2017-07-22] MEDS: QUEtiapine FUMARATE 100 MG TABLET (FP) PO SCH (21:24)
[2017-07-22] MEDS: THIAMINE HCL 100 MG TABLET (FP) PO SCH (21:24)
[2017-07-23] MEDS ORDERED: METHADONE HCL 10 MG TABLET ONE (04:43)
[2017-07-23] MEDS ORDERED: METHADONE HCL 40 MG DISPERSABLE TABLET ONE (04:44)
[2017-07-23] MEDS ORDERED: METHADONE HCL 10 MG TABLET PO SCH (06:00)
[2017-07-23] MEDS: METHADONE 40 MG, METHADONE 10 MG PO SCH (06:27)
[2017-07-23] MEDS: PSYLLIUM 5.85 GM PACKET PO SCH ×3 (07:36→19:14)
[2017-07-23] MEDS: PRENATAL VITAMINS W/ FOLIC ACID TABLET (FP) PO SCH (09:39)
[2017-07-23] MEDS: NICOTINE 21 MG/24 HOURS TOPICAL PATCH TD SCH (09:39)
[2017-07-23] MEDS: BACLOFEN 10 MG TABLET (FP) PO SCH ×2 (09:39→21:39)
[2017-07-23] MEDS: NICOTINE POLACRILEX 4 MG GUM BC PRN (09:41)
[2017-07-23] MEDS: QUEtiapine FUMARATE 100 MG TABLET (FP) PO SCH (21:39)
[2017-07-23] MEDS: THIAMINE HCL 100 MG TABLET (FP) PO SCH (21:39)
[2017-07-23] MEDS: MAGNESIUM HYDROX 2400MG/30ML ORAL SUSPENSION 30 ML CUP PO PRN (21:40)
[2017-07-24] MEDS ORDERED: METHADONE HCL 10 MG TABLET ONE (03:19)
[2017-07-24] MEDS ORDERED: METHADONE HCL 40 MG DISPERSABLE TABLET ONE (03:19)
[2017-07-24] MEDS: METHADONE 40 MG, METHADONE 10 MG PO SCH (06:11)
[2017-07-24] MEDS: PSYLLIUM 5.85 GM PACKET PO SCH ×3 (07:05→17:50)
[2017-07-24] MEDS: NICOTINE POLACRILEX 4 MG GUM BC PRN (09:26)
[2017-07-24] MEDS: NICOTINE 21 MG/24 HOURS TOPICAL PATCH TD SCH (09:26)
[2017-07-24] MEDS: PRENATAL VITAMINS W/ FOLIC ACID TABLET (FP) PO SCH (09:26)
[2017-07-24] MEDS: BACLOFEN 10 MG TABLET (FP) PO SCH ×2 (09:26→21:25)
[2017-07-24] MEDS: MAGNESIUM CITRATE 300 ML BOTTLE PO PRN (12:56)
[2017-07-24] MEDS: THIAMINE HCL 100 MG TABLET (FP) PO SCH (21:25)
[2017-07-24] MEDS: QUEtiapine FUMARATE 100 MG TABLET (FP) PO SCH (21:25)
[2017-07-25] MEDS ORDERED: METHADONE HCL 40 MG DISPERSABLE TABLET ONE (03:53)
[2017-07-25] MEDS ORDERED: METHADONE HCL 10 MG TABLET ONE (03:53)
[2017-07-25] MEDS: METHADONE 40 MG, METHADONE 10 MG PO SCH (06:24)
[2017-07-25] MEDS: PSYLLIUM 5.85 GM PACKET PO SCH ×3 (07:35→17:30)
[2017-07-25] MEDS: BACLOFEN 10 MG TABLET (FP) PO SCH ×2 (09:42→21:07)
[2017-07-25] MEDS: NICOTINE POLACRILEX 4 MG GUM BC PRN (09:42)
[2017-07-25] MEDS: PRENATAL VITAMINS W/ FOLIC ACID TABLET (FP) PO SCH (09:42)
[2017-07-25] MEDS: NICOTINE 21 MG/24 HOURS TOPICAL PATCH TD SCH (09:42)
--- NOTE | 2017-07-25 14:12 | PN ---
Psychiatric Progress Note Vital Signs: Vital Signs Period Temp Pulse Resp BP Sys/Quiroga Pulse Ox Last 24 Hr 98.7 F 73-76 18-20 127-129/78-83 Date of Session: 07/25/17 Chief Complaint:: Hearing voices HPI: Patient addressing Sedative Dependence comorbid with Opoi Dependence on Agonist Therapy, Nicotine Dependence and Generalized Anxiety Disorder ROS: HTN, Hard of hearing Current Medications: Active Medications Generic Name Dose Route Start Last Admin Trade Name Freq PRN Reason Stop Dose Admin Acetaminophen 650 mg 07/15/17 17:15 Tylenol - PO Q4H PRN PAIN Al Hydroxide/Mg Hydroxide 30 ml 07/15/17 17:15 Mylanta Oral Suspension - PO Q6H PRN DYSPEPSIA Baclofen 10 mg 07/15/17 22:00 07/25/17 09:42 Lioresal - PO 10 mg BID REUBEN Administration Diphenhydramine HCl 50 mg 07/15/17 17:15 07/21/17 21:11 Benadryl - PO 50 mg HSMR1 PRN Administration INSOMNIA Eucalyptus/Menthol/Phenol/Sorbitol 1 each 07/15/17 17:15 07/16/17 03:15 Cepastat Lozenge - MM 1 each Q4H PRN Administration SORE THROAT Guaifenesin 10 ml 07/15/17 17:15 Robitussin Dm - PO Q6H PRN COUGH Hydroxyzine Pamoate 50 mg 07/15/17 17:15 07/22/17 17:00 Vistaril - PO 50 mg Q4H PRN Administration AGITATION Ibuprofen 400 mg 07/15/17 17:15 Motrin - PO Q6H PRN SEVERE PAIN Loperamide HCl 4 mg 07/15/17 17:15 Imodium - PO Q6H PRN DIARRHEA Magnesium Citrate 300 ml 07/15/17 17:15 07/24/17 12:56 Citroma - PO 300 ml Q48H PRN Administration CONSTIPATION Magnesium Hydroxide 30 ml 07/15/17 17:15 07/23/17 21:40 Milk Of Magnesia - PO 30 ml DAILY PRN Administration CONSTIPATION Methadone HCl 40 mg/ Methadone 50 mg 07/23/17 06:00 07/25/17 06:24 HCl 10 mg PO 07/29/17 05:59 50 mg DAILY@0600 REUBEN Administration Nicotine 21 mg 07/16/17 10:00 07/25/17 09:42 Nicoderm Patch - TD Not Given DAILY REUBEN Nicotine Polacrilex 4 mg 07/15/17 17:15 07/25/17 09:42 Nicorette Gum - BC 4 mg Q2H PRN Administration NICOTINE REPLACEMENT RX Multivit/Folic Acid/Iron 1 tab 07/16/17 10:00 07/25/17 09:42 Vitamins ([facility]) - PO 1 tab DAILY REUBEN Administration Propranolol HCl 80 mg 07/16/17 10:00 07/25/17 09:41 Inderal La - PO 80 mg DAILY REUBEN Administration Pseudoephedrine/Triprolidine 1 combo 07/15/17 17:15 Actifed - PO TID PRN NASAL CONGESTION Psyllium Hydrophilic Mucilloid 5.85 gm 07/16/17 08:00 07/25/17 12:44 Metamucil (Sugar-Free) - PO Not Given TIDCM REUBEN Quetiapine Fumarate 100 mg 07/19/17 22:00 07/24/17 21:25 Seroquel - PO 100 mg HS REUBEN Administration Thiamine HCl 100 mg 07/15/17 22:00 07/24/17 21:25 Vitamin B1 - PO 100 mg HS REUBEN Administration Current Side Effect: No Lab tests ordered: Yes Lab tests reviewed: Yes Provider note:: Patient reports that in bed last night, he saw himself in the hallway talking to his mother and sister. He said that he saw them and touched them. He said that the conversation was about his drug use and they were telling him that he should be ashamed. He said that he woke his roomate up since he was talking loud. He could tell it was a dream or he was awake at the time. Claims this type of phenomenon happened to him before. Patient denies hearing voices at present and shows no evidence of overt psychosis Total face to face time:: 25 Mental Status Exam - Mental Status Exam Alert and Oriented to: Time, Place, Person Cognitive Function: Fair Patient Appearance: Well Groomed Mood: Hopeful, Euthymic Affect: Appropriate Patient Behavior: Cooperative Speech Pattern: Clear Voice Loudness: Normal Thought Process: Intact, Goal Oriented Thought Disorder: Not Present Hallucinations: Denies Suicidal Ideation: Denies Homicidal Ideation: Denies Insight/Judgement: Fair Sleep: Fair Appetite: Good Muscle strength/Tone: Normal Gait/Station: Normal Psychiatric Treatment Plan - Problem List (1) Sedative, hypnotic or anxiolytic dependence Current Visit: Yes (2) Opioid dependence on agonist therapy Current Visit: No (3) Nicotine dependence Current Visit: Yes (4) Hard of hearing Current Visit: Yes Qualifiers: Hearing loss type: mixed conductive and sensorineural Laterality: bilateral Qualified Code(s): 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 at this point, he shows no evidence of overt psychosis. Will monitor for evidence of psychotic decompensation
[2017-07-25] MEDS: THIAMINE HCL 100 MG TABLET (FP) PO SCH (21:07)
[2017-07-25] MEDS: QUEtiapine FUMARATE 100 MG TABLET (FP) PO SCH (21:07)
[2017-07-25] MEDS: hydrOXYzine PAMOATE 50 MG CAPSULE (FP) PO PRN (21:08)
[2017-07-26] MEDS ORDERED: METHADONE HCL 10 MG TABLET ONE (03:23)
[2017-07-26] MEDS ORDERED: METHADONE HCL 40 MG DISPERSABLE TABLET ONE (03:23)
[2017-07-26] MEDS: METHADONE 40 MG, METHADONE 10 MG PO SCH (06:11)
[2017-07-26] MEDS: NICOTINE POLACRILEX 4 MG GUM BC PRN (06:13)
[2017-07-26] MEDS: PSYLLIUM 5.85 GM PACKET PO SCH ×3 (07:28→16:44)
[2017-07-26] MEDS ORDERED: PT OWN MED DRAWER 7, Y5N ONE (09:11)
[2017-07-26] MEDS: PRENATAL VITAMINS W/ FOLIC ACID TABLET (FP) PO SCH (09:49)
[2017-07-26] MEDS: NICOTINE 21 MG/24 HOURS TOPICAL PATCH TD SCH (09:49)
[2017-07-26] MEDS: BACLOFEN 10 MG TABLET (FP) PO SCH ×2 (09:49→21:31)
[2017-07-26] MEDS: hydrOXYzine PAMOATE 50 MG CAPSULE (FP) PO PRN (16:46)
[2017-07-26] MEDS: THIAMINE HCL 100 MG TABLET (FP) PO SCH (21:31)
[2017-07-26] MEDS: diphenhydrAMINE HCL 50 MG CAPSULE PO PRN (21:31)
[2017-07-26] MEDS: QUEtiapine FUMARATE 50 MG TABLET PO SCH (21:33)
[2017-07-27] MEDS ORDERED: METHADONE HCL 10 MG TABLET ONE (04:39)
[2017-07-27] MEDS ORDERED: METHADONE HCL 40 MG DISPERSABLE TABLET ONE (04:40)
[2017-07-27] MEDS: METHADONE 40 MG, METHADONE 10 MG PO SCH (05:54)
--- NOTE | 2017-07-27 06:08 | PN ---
Psychiatric Progress Note Vital Signs: Vital Signs Period Temp Pulse Resp BP Sys/Quiroga Pulse Ox Last 24 Hr 98.3 F 73-84 18-18 141-147/86-92 Date of Session: 07/26/17 Chief Complaint:: Hearing voices HPI: Patient addressing Sedative Dependence comorbid with Opoi Dependence on Agonist Therapy, Nicotine Dependence and Generalized Anxiety Disorder ROS: HTN, Hard of hearing Current Medications: Active Medications Generic Name Dose Route Start Last Admin Trade Name Freq PRN Reason Stop Dose Admin Acetaminophen 650 mg 07/15/17 17:15 Tylenol - PO Q4H PRN PAIN Al Hydroxide/Mg Hydroxide 30 ml 07/15/17 17:15 Mylanta Oral Suspension - PO Q6H PRN DYSPEPSIA Baclofen 10 mg 07/15/17 22:00 07/26/17 21:31 Lioresal - PO 10 mg BID REUBEN Administration Diphenhydramine HCl 50 mg 07/15/17 17:15 07/26/17 21:31 Benadryl - PO 50 mg HSMR1 PRN Administration INSOMNIA Eucalyptus/Menthol/Phenol/Sorbitol 1 each 07/15/17 17:15 07/16/17 03:15 Cepastat Lozenge - MM 1 each Q4H PRN Administration SORE THROAT Guaifenesin 10 ml 07/15/17 17:15 Robitussin Dm - PO Q6H PRN COUGH Hydroxyzine Pamoate 50 mg 07/15/17 17:15 07/26/17 16:46 Vistaril - PO 50 mg Q4H PRN Administration AGITATION Ibuprofen 400 mg 07/15/17 17:15 Motrin - PO Q6H PRN SEVERE PAIN Loperamide HCl 4 mg 07/15/17 17:15 Imodium - PO Q6H PRN DIARRHEA Magnesium Citrate 300 ml 07/15/17 17:15 07/24/17 12:56 Citroma - PO 300 ml Q48H PRN Administration CONSTIPATION Magnesium Hydroxide 30 ml 07/15/17 17:15 07/23/17 21:40 Milk Of Magnesia - PO 30 ml DAILY PRN Administration CONSTIPATION Methadone HCl 40 mg/ Methadone 50 mg 07/23/17 06:00 07/27/17 05:54 HCl 10 mg PO 07/29/17 05:59 50 mg DAILY@0600 REUBEN Administration Nicotine 21 mg 07/16/17 10:00 07/26/17 09:49 Nicoderm Patch - TD Not Given DAILY REUBEN Nicotine Polacrilex 4 mg 07/15/17 17:15 07/26/17 06:13 Nicorette Gum - BC 4 mg Q2H PRN Administration NICOTINE REPLACEMENT RX Multivit/Folic Acid/Iron 1 tab 07/16/17 10:00 07/26/17 09:49 Vitamins ([facility]) - PO 1 tab DAILY REUBEN Administration Propranolol HCl 80 mg 07/16/17 10:00 07/26/17 09:49 Inderal La - PO 80 mg DAILY REUBEN Administration Pseudoephedrine/Triprolidine 1 combo 07/15/17 17:15 Actifed - PO TID PRN NASAL CONGESTION Psyllium Hydrophilic Mucilloid 5.85 gm 07/16/17 08:00 07/26/17 16:44 Metamucil (Sugar-Free) - PO 5.85 gm TIDCM REUBEN Administration Quetiapine Fumarate 150 mg 07/26/17 22:00 07/26/17 21:33 Seroquel - PO 150 mg HS REUBEN Administration Thiamine HCl 100 mg 07/15/17 22:00 07/26/17 21:31 Vitamin B1 - PO 100 mg HS REUBEN Administration Medication(s) Change(s): Increase Seroquel dosage to 150 mg po HS Current Side Effect: No Lab tests ordered: Yes Lab tests reviewed: Yes Provider note:: Patient continues to report talking loudly to different people in his sleep as told to him by his roomate who is disturbed by it. Claims that it even happens during the day when he is sleeping with eyes wide open. He denies hearing voices in a wake state. He insists that this has to do with withdrawing from Benzodiazepine(Xanax) since similar situation has occured in the past after being off Benzo for a few days. Aviation Electrician told him if this is a manifestation of protracted withdrawal from Benzo, he needs extended tapering time from these drugs which could only be done on an outpatient basis. Discussed to increase to 150 mg hoping that dose change will produce an impact on whatever is going on. Total face to face time:: 25 Mental Status Exam - Mental Status Exam Alert and Oriented to: Time, Place, Person Cognitive Function: Fair Patient Appearance: Well Groomed Mood: Hopeful, Euthymic Affect: Appropriate Patient Behavior: Cooperative Speech Pattern: Clear Voice Loudness: Normal Thought Process: Intact, Goal Oriented Thought Disorder: Not Present Hallucinations: Denies Suicidal Ideation: Denies Homicidal Ideation: Denies Insight/Judgement: Fair Sleep: Poorly Appetite: Good Muscle strength/Tone: Normal Gait/Station: Normal Psychiatric Treatment Plan - Problem List (1) Sedative, hypnotic or anxiolytic dependence Current Visit: Yes (2) Opioid dependence on agonist therapy Current Visit: No (3) Nicotine dependence Current Visit: Yes (4) Hard of hearing Current Visit: Yes Qualifiers: Hearing loss type: mixed conductive and sensorineural Laterality: bilateral Qualified Code(s): 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 2) Start Seroquel 150 mg po HS. 3) Monitor progress
[2017-07-27] MEDS: PSYLLIUM 5.85 GM PACKET PO SCH ×3 (08:33→16:47)
[2017-07-27] MEDS: BACLOFEN 10 MG TABLET (FP) PO SCH ×2 (09:33→21:20)
[2017-07-27] MEDS: PRENATAL VITAMINS W/ FOLIC ACID TABLET (FP) PO SCH (09:33)
[2017-07-27] MEDS: NICOTINE 21 MG/24 HOURS TOPICAL PATCH TD SCH (10:17)
[2017-07-27] MEDS: hydrOXYzine PAMOATE 50 MG CAPSULE (FP) PO PRN (16:47)
[2017-07-27] MEDS: QUEtiapine FUMARATE 50 MG TABLET PO SCH (21:19)
[2017-07-27] MEDS: diphenhydrAMINE HCL 50 MG CAPSULE PO PRN (21:19)
[2017-07-27] MEDS: THIAMINE HCL 100 MG TABLET (FP) PO SCH (21:19)
[2017-07-28] MEDS: hydrOXYzine PAMOATE 50 MG CAPSULE (FP) PO PRN (01:05)
[2017-07-28] MEDS ORDERED: METHADONE HCL 10 MG TABLET ONE (05:18)
[2017-07-28] MEDS ORDERED: METHADONE HCL 40 MG DISPERSABLE TABLET ONE (05:19)
[2017-07-28] MEDS: METHADONE 40 MG, METHADONE 10 MG PO SCH (06:01)
[2017-07-28] MEDS: PSYLLIUM 5.85 GM PACKET PO SCH ×3 (08:12→19:28)
[2017-07-28] MEDS: BACLOFEN 10 MG TABLET (FP) PO SCH ×2 (10:05→21:32)
[2017-07-28] MEDS: PRENATAL VITAMINS W/ FOLIC ACID TABLET (FP) PO SCH (10:05)
[2017-07-28] MEDS: NICOTINE 21 MG/24 HOURS TOPICAL PATCH TD SCH (10:07)
[2017-07-28] MEDS: NICOTINE POLACRILEX 4 MG GUM BC PRN (10:09)
--- NOTE | 2017-07-28 14:48 | PN ---
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, Nicotine Dependence and Generalized Anxiety Disorder ROS: HTN, Hard of hearing Current Medications: Active Medications Generic Name Dose Route Start Last Admin Trade Name Freq PRN Reason Stop Dose Admin Acetaminophen 650 mg 07/15/17 17:15 Tylenol - PO Q4H PRN PAIN Al Hydroxide/Mg Hydroxide 30 ml 07/15/17 17:15 Mylanta Oral Suspension - PO Q6H PRN DYSPEPSIA Baclofen 10 mg 07/15/17 22:00 07/28/17 10:05 Lioresal - PO 10 mg BID REUBEN Administration Diphenhydramine HCl 50 mg 07/15/17 17:15 07/27/17 21:19 Benadryl - PO 50 mg HSMR1 PRN Administration INSOMNIA Eucalyptus/Menthol/Phenol/Sorbitol 1 each 07/15/17 17:15 07/16/17 03:15 Cepastat Lozenge - MM 1 each Q4H PRN Administration SORE THROAT Guaifenesin 10 ml 07/15/17 17:15 Robitussin Dm - PO Q6H PRN COUGH Hydroxyzine Pamoate 50 mg 07/15/17 17:15 07/28/17 01:05 Vistaril - PO 50 mg Q4H PRN Administration AGITATION Ibuprofen 400 mg 07/15/17 17:15 Motrin - PO Q6H PRN SEVERE PAIN Loperamide HCl 4 mg 07/15/17 17:15 Imodium - PO Q6H PRN DIARRHEA Magnesium Citrate 300 ml 07/15/17 17:15 07/24/17 12:56 Citroma - PO 300 ml Q48H PRN Administration CONSTIPATION Magnesium Hydroxide 30 ml 07/15/17 17:15 07/23/17 21:40 Milk Of Magnesia - PO 30 ml DAILY PRN Administration CONSTIPATION Methadone HCl 40 mg/ Methadone 50 mg 07/23/17 06:00 07/28/17 06:01 HCl 10 mg PO 07/29/17 05:59 50 mg DAILY@0600 REUBEN Administration Nicotine 21 mg 07/16/17 10:00 07/28/17 10:07 Nicoderm Patch - TD Not Given DAILY REUBEN Nicotine Polacrilex 4 mg 07/15/17 17:15 07/28/17 10:09 Nicorette Gum - BC 4 mg Q2H PRN Administration NICOTINE REPLACEMENT RX Multivit/Folic Acid/Iron 1 tab 07/16/17 10:00 07/28/17 10:05 Vitamins (Sjr) - PO 1 tab DAILY REUBEN Administration Propranolol HCl 80 mg 07/16/17 10:00 07/28/17 10:07 Inderal La - PO 80 mg DAILY REUBEN Administration Pseudoephedrine/Triprolidine 1 combo 07/15/17 17:15 Actifed - PO TID PRN NASAL CONGESTION Psyllium Hydrophilic Mucilloid 5.85 gm 07/16/17 08:00 07/28/17 12:56 Metamucil (Sugar-Free) - PO Not Given TIDCM REUBEN Quetiapine Fumarate 200 mg 07/28/17 22:00 Seroquel - PO HS REUBEN Thiamine HCl 100 mg 07/15/17 22:00 07/27/17 21:19 Vitamin B1 - PO 100 mg HS REUBEN Administration Medication(s) Change(s): Increase Seroquel dose to 200 mg po HS Current Side Effect: No Lab tests ordered: Yes Lab tests reviewed: Yes Provider note:: Requested to see patient by nursing staff. According to staff, patient did not sleep well last night. He was pacing the unit. Staff reported that he told them that he was hearing over head page, people banging on the vick and he tried to touch them, he was unable to do so. When confronted with that allegation, he said:" I don't recall saying that to the nurses but It might have been". He told staff writer that he had realistic dreams like nightmares. He said that in that dream, he saw the spirit of his mother coming into the room talking to both his roomate and himself. Then as his mother touches the wall, it started to close on him. At present, patient denies hearing voices and shows no evidence of overt psychosis. Denies S/H ideations as well Mental Status Exam - Mental Status Exam Alert and Oriented to: Time, Place, Person Cognitive Function: Fair Patient Appearance: Well Groomed Mood: Hopeful, Euthymic Affect: Appropriate Patient Behavior: Cooperative Speech Pattern: Clear Voice Loudness: Normal Thought Process: Intact, Goal Oriented Thought Disorder: Not Present Hallucinations: Denies Suicidal Ideation: Denies Homicidal Ideation: Denies Insight/Judgement: Fair Sleep: Fair Appetite: Good Muscle strength/Tone: Normal Gait/Station: Normal Psychiatric Treatment Plan - Problem List (1) Sedative, hypnotic or anxiolytic dependence Current Visit: Yes (2) Opioid dependence on agonist therapy Current Visit: No (3) Nicotine dependence Current Visit: Yes (4) Hard of hearing Current Visit: Yes Qualifiers: Hearing loss type: mixed conductive and sensorineural Laterality: bilateral Qualified Code(s): 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 2) Start Seroquel 200 mg po HS. 3) Monitor progress
[2017-07-28] MEDS: THIAMINE HCL 100 MG TABLET (FP) PO SCH (21:32)
[2017-07-28] MEDS: QUEtiapine FUMARATE 200 MG TABLET PO SCH (21:32)
[2017-07-29] MEDS ORDERED: METHADONE HCL 40 MG DISPERSABLE TABLET ONE (06:00)
[2017-07-29] MEDS ORDERED: METHADONE HCL 10 MG TABLET ONE (06:00)
[2017-07-29] MEDS: METHADONE 40 MG, METHADONE 10 MG PO SCH (06:11)
[2017-07-29] MEDS: hydrOXYzine PAMOATE 50 MG CAPSULE (FP) PO PRN (06:12)
[2017-07-29] MEDS: PSYLLIUM 5.85 GM PACKET PO SCH ×3 (07:15→17:40)
[2017-07-29] MEDS: PRENATAL VITAMINS W/ FOLIC ACID TABLET (FP) PO SCH (09:36)
[2017-07-29] MEDS: BACLOFEN 10 MG TABLET (FP) PO SCH ×2 (09:36→21:40)
[2017-07-29] MEDS: NICOTINE 21 MG/24 HOURS TOPICAL PATCH TD SCH (09:37)
[2017-07-29] MEDS: MAGNESIUM CITRATE 300 ML BOTTLE PO PRN (17:43)
[2017-07-29] MEDS: QUEtiapine FUMARATE 200 MG TABLET PO SCH (21:40)
[2017-07-29] MEDS: THIAMINE HCL 100 MG TABLET (FP) PO SCH (21:40)
[2017-07-30] MEDS ORDERED: METHADONE HCL 40 MG DISPERSABLE TABLET ONE (03:10)
[2017-07-30] MEDS ORDERED: METHADONE HCL 10 MG TABLET ONE (03:10)
[2017-07-30] MEDS: METHADONE 40 MG, METHADONE 10 MG PO SCH (06:08)
[2017-07-30] MEDS: PSYLLIUM 5.85 GM PACKET PO SCH ×3 (07:29→17:31)
[2017-07-30] MEDS: BACLOFEN 10 MG TABLET (FP) PO SCH ×2 (09:37→21:09)
[2017-07-30] MEDS: PRENATAL VITAMINS W/ FOLIC ACID TABLET (FP) PO SCH (09:37)
[2017-07-30] MEDS: NICOTINE 21 MG/24 HOURS TOPICAL PATCH TD SCH (09:38)
[2017-07-30] MEDS: THIAMINE HCL 100 MG TABLET (FP) PO SCH (21:09)
[2017-07-30] MEDS: QUEtiapine FUMARATE 200 MG TABLET PO SCH (21:09)
[2017-07-31] MEDS ORDERED: METHADONE HCL 10 MG TABLET ONE (05:50)
[2017-07-31] MEDS ORDERED: METHADONE HCL 40 MG DISPERSABLE TABLET ONE (05:50)
[2017-07-31] MEDS: METHADONE 40 MG, METHADONE 10 MG PO SCH (06:10)
[2017-07-31] MEDS: PSYLLIUM 5.85 GM PACKET PO SCH ×3 (07:53→17:00)
[2017-07-31] MEDS: hydrOXYzine PAMOATE 50 MG CAPSULE (FP) PO PRN (09:43)
[2017-07-31] MEDS: BACLOFEN 10 MG TABLET (FP) PO SCH ×2 (09:43→22:03)
[2017-07-31] MEDS: PRENATAL VITAMINS W/ FOLIC ACID TABLET (FP) PO SCH (09:43)
[2017-07-31] MEDS: NICOTINE 21 MG/24 HOURS TOPICAL PATCH TD SCH (09:44)
[2017-07-31] MEDS: THIAMINE HCL 100 MG TABLET (FP) PO SCH (22:03)
[2017-07-31] MEDS: QUEtiapine FUMARATE 200 MG TABLET PO SCH (22:03)
[2017-08-01] MEDS ORDERED: METHADONE HCL 40 MG DISPERSABLE TABLET ONE (03:14)
[2017-08-01] MEDS ORDERED: METHADONE HCL 10 MG TABLET ONE (03:14)
[2017-08-01] MEDS: METHADONE 40 MG, METHADONE 10 MG PO SCH (06:29)
[2017-08-01] MEDS: PSYLLIUM 5.85 GM PACKET PO SCH ×3 (07:29→17:04)
[2017-08-01] MEDS: PRENATAL VITAMINS W/ FOLIC ACID TABLET (FP) PO SCH (09:44)
[2017-08-01] MEDS: BACLOFEN 10 MG TABLET (FP) PO SCH ×2 (09:44→21:21)
[2017-08-01] MEDS: NICOTINE 21 MG/24 HOURS TOPICAL PATCH TD SCH (09:44)
[2017-08-01] MEDS: hydrOXYzine PAMOATE 50 MG CAPSULE (FP) PO PRN ×2 (16:11→21:21)
[2017-08-01] MEDS: THIAMINE HCL 100 MG TABLET (FP) PO SCH (21:21)
[2017-08-01] MEDS: QUEtiapine FUMARATE 200 MG TABLET PO SCH (21:22)
[2017-08-02] MEDS ORDERED: METHADONE HCL 40 MG DISPERSABLE TABLET ONE (03:40)
[2017-08-02] MEDS ORDERED: METHADONE HCL 10 MG TABLET ONE (03:40)
[2017-08-02] MEDS: METHADONE 40 MG, METHADONE 10 MG PO SCH (06:16)
[2017-08-02] MEDS: PSYLLIUM 5.85 GM PACKET PO SCH ×3 (09:40→21:30)
[2017-08-02] MEDS: PRENATAL VITAMINS W/ FOLIC ACID TABLET (FP) PO SCH (09:40)
[2017-08-02] MEDS: BACLOFEN 10 MG TABLET (FP) PO SCH ×2 (09:40→21:30)
[2017-08-02] MEDS: hydrOXYzine PAMOATE 50 MG CAPSULE (FP) PO PRN (09:41)
[2017-08-02] MEDS: NICOTINE 21 MG/24 HOURS TOPICAL PATCH TD SCH (09:41)
[2017-08-02] MEDS: NICOTINE POLACRILEX 4 MG GUM BC PRN (09:42)
[2017-08-02] MEDS: THIAMINE HCL 100 MG TABLET (FP) PO SCH (21:30)
[2017-08-02] MEDS: diphenhydrAMINE HCL 50 MG CAPSULE PO PRN (21:30)
[2017-08-02] MEDS: QUEtiapine FUMARATE 200 MG TABLET PO SCH (21:31)
[2017-08-03] MEDS ORDERED: METHADONE HCL 40 MG DISPERSABLE TABLET ONE (03:25)
[2017-08-03] MEDS ORDERED: METHADONE HCL 10 MG TABLET ONE (03:25)
[2017-08-03] MEDS: METHADONE 40 MG, METHADONE 10 MG PO SCH (06:30)
[2017-08-03] MEDS: PSYLLIUM 5.85 GM PACKET PO SCH ×3 (07:19→17:45)
[2017-08-03] MEDS: PRENATAL VITAMINS W/ FOLIC ACID TABLET (FP) PO SCH (09:53)
[2017-08-03] MEDS: BACLOFEN 10 MG TABLET (FP) PO SCH ×2 (09:53→21:21)
[2017-08-03] MEDS: NICOTINE 21 MG/24 HOURS TOPICAL PATCH TD SCH (09:54)
[2017-08-03] MEDS: hydrOXYzine PAMOATE 50 MG CAPSULE (FP) PO PRN (14:51)
[2017-08-03] MEDS: NICOTINE POLACRILEX 4 MG GUM BC PRN (14:52)
[2017-08-03] MEDS: MAGNESIUM CITRATE 300 ML BOTTLE PO PRN (17:45)
[2017-08-03] MEDS: THIAMINE HCL 100 MG TABLET (FP) PO SCH (21:21)
[2017-08-03] MEDS: QUEtiapine FUMARATE 200 MG TABLET PO SCH (21:21)
[2017-08-04] MEDS ORDERED: METHADONE HCL 40 MG DISPERSABLE TABLET ONE (05:02)
[2017-08-04] MEDS ORDERED: METHADONE HCL 10 MG TABLET ONE (05:02)
[2017-08-04] MEDS: METHADONE 40 MG, METHADONE 10 MG PO SCH (06:20)
[2017-08-04] MEDS: PSYLLIUM 5.85 GM PACKET PO SCH ×3 (07:17→19:49)
[2017-08-04] MEDS: BACLOFEN 10 MG TABLET (FP) PO SCH ×2 (10:20→21:26)
[2017-08-04] MEDS: PRENATAL VITAMINS W/ FOLIC ACID TABLET (FP) PO SCH (10:20)
[2017-08-04] MEDS: NICOTINE 21 MG/24 HOURS TOPICAL PATCH TD SCH (10:31)
[2017-08-04] MEDS: THIAMINE HCL 100 MG TABLET (FP) PO SCH (21:26)
[2017-08-04] MEDS: diphenhydrAMINE HCL 50 MG CAPSULE PO PRN (21:26)
[2017-08-04] MEDS: QUEtiapine FUMARATE 200 MG TABLET PO SCH (21:27)
[2017-08-04] MEDS ORDERED: SUVOREXANT 10 MG TABLET PO PRN (22:00)
[2017-08-05] MEDS ORDERED: METHADONE HCL 40 MG DISPERSABLE TABLET ONE (05:46)
[2017-08-05] MEDS ORDERED: METHADONE HCL 10 MG TABLET ONE (05:46)
[2017-08-05] MEDS ORDERED: METHADONE HCL 10 MG TABLET PO SCH (06:00)
[2017-08-05] MEDS: METHADONE 40 MG, METHADONE 10 MG PO SCH (06:06)
[2017-08-05] MEDS: PSYLLIUM 5.85 GM PACKET PO SCH ×3 (07:59→16:47)
[2017-08-05] MEDS: PRENATAL VITAMINS W/ FOLIC ACID TABLET (FP) PO SCH (09:31)
[2017-08-05] MEDS: BACLOFEN 10 MG TABLET (FP) PO SCH ×2 (09:31→22:18)
[2017-08-05] MEDS: NICOTINE 21 MG/24 HOURS TOPICAL PATCH TD SCH (09:32)
[2017-08-05] MEDS: hydrOXYzine PAMOATE 50 MG CAPSULE (FP) PO PRN (16:48)
[2017-08-05] MEDS: QUEtiapine FUMARATE 200 MG TABLET PO SCH (22:18)
[2017-08-05] MEDS: THIAMINE HCL 100 MG TABLET (FP) PO SCH (22:18)
[2017-08-06] MEDS ORDERED: METHADONE HCL 10 MG TABLET ONE (03:45)
[2017-08-06] MEDS ORDERED: METHADONE HCL 40 MG DISPERSABLE TABLET ONE (03:45)
[2017-08-06] MEDS: METHADONE 40 MG, METHADONE 10 MG PO SCH (06:07)
[2017-08-06] MEDS: BACLOFEN 10 MG TABLET (FP) PO SCH ×2 (09:42→21:28)
[2017-08-06] MEDS: PRENATAL VITAMINS W/ FOLIC ACID TABLET (FP) PO SCH (09:42)
[2017-08-06] MEDS: NICOTINE 21 MG/24 HOURS TOPICAL PATCH TD SCH (09:43)
[2017-08-06] MEDS: hydrOXYzine PAMOATE 50 MG CAPSULE (FP) PO PRN (21:28)
[2017-08-06] MEDS: THIAMINE HCL 100 MG TABLET (FP) PO SCH (21:28)
[2017-08-06] MEDS: QUEtiapine FUMARATE 200 MG TABLET PO SCH (21:28)
[2017-08-07] MEDS ORDERED: METHADONE HCL 10 MG TABLET ONE (04:11)
[2017-08-07] MEDS ORDERED: METHADONE HCL 40 MG DISPERSABLE TABLET ONE (04:12)
[2017-08-07] MEDS: METHADONE 40 MG, METHADONE 10 MG PO SCH (06:18)
[2017-08-07] MEDS: PRENATAL VITAMINS W/ FOLIC ACID TABLET (FP) PO SCH (09:41)
[2017-08-07] MEDS: BACLOFEN 10 MG TABLET (FP) PO SCH ×2 (09:41→21:35)
[2017-08-07] MEDS: NICOTINE 21 MG/24 HOURS TOPICAL PATCH TD SCH (09:41)
[2017-08-07] MEDS: NICOTINE POLACRILEX 4 MG GUM BC PRN (09:42)
[2017-08-07] MEDS: hydrOXYzine PAMOATE 50 MG CAPSULE (FP) PO PRN (14:22)
[2017-08-07] MEDS: QUEtiapine FUMARATE 200 MG TABLET PO SCH (21:35)
[2017-08-07] MEDS: THIAMINE HCL 100 MG TABLET (FP) PO SCH (21:35)
[2017-08-08] MEDS ORDERED: METHADONE HCL 40 MG DISPERSABLE TABLET ONE (04:04)
[2017-08-08] MEDS ORDERED: METHADONE HCL 10 MG TABLET ONE (04:04)
[2017-08-08] MEDS: METHADONE 40 MG, METHADONE 10 MG PO SCH (06:15)
[2017-08-08] MEDS: PRENATAL VITAMINS W/ FOLIC ACID TABLET (FP) PO SCH (09:30)
[2017-08-08] MEDS: BACLOFEN 10 MG TABLET (FP) PO SCH ×2 (09:30→21:28)
[2017-08-08] MEDS: NICOTINE 21 MG/24 HOURS TOPICAL PATCH TD SCH (09:30)
[2017-08-08] MEDS: NICOTINE POLACRILEX 4 MG GUM BC PRN (09:31)
[2017-08-08] MEDS: THIAMINE HCL 100 MG TABLET (FP) PO SCH (21:28)
[2017-08-08] MEDS: QUEtiapine FUMARATE 200 MG TABLET PO SCH (21:28)
[2017-08-08] MEDS: hydrOXYzine PAMOATE 50 MG CAPSULE (FP) PO PRN (22:12)
[2017-08-09] MEDS ORDERED: METHADONE HCL 10 MG TABLET ONE (05:43)
[2017-08-09] MEDS ORDERED: METHADONE HCL 40 MG DISPERSABLE TABLET ONE (05:44)
[2017-08-09] MEDS: METHADONE 40 MG, METHADONE 10 MG PO SCH (06:10)
[2017-08-09] MEDS: PRENATAL VITAMINS W/ FOLIC ACID TABLET (FP) PO SCH (09:40)
[2017-08-09] MEDS: BACLOFEN 10 MG TABLET (FP) PO SCH ×2 (09:40→21:28)
[2017-08-09] MEDS: NICOTINE 21 MG/24 HOURS TOPICAL PATCH TD SCH (09:42)
[2017-08-09] MEDS: NICOTINE POLACRILEX 4 MG GUM BC PRN (09:43)
[2017-08-09] MEDS: THIAMINE HCL 100 MG TABLET (FP) PO SCH (21:29)
[2017-08-09] MEDS: QUEtiapine FUMARATE 200 MG TABLET PO SCH (21:29)
[2017-08-10] MEDS ORDERED: METHADONE HCL 10 MG TABLET ONE (01:33)
[2017-08-10] MEDS ORDERED: METHADONE HCL 40 MG DISPERSABLE TABLET ONE (01:34)
[2017-08-10] MEDS: METHADONE 40 MG, METHADONE 10 MG PO SCH (06:26)
[2017-08-10 06:59] VITALS: TEMP 97.8
[2017-08-10] MEDS: BACLOFEN 10 MG TABLET (FP) PO SCH ×2 (09:55→21:28)
[2017-08-10] MEDS: PRENATAL VITAMINS W/ FOLIC ACID TABLET (FP) PO SCH (09:55)
[2017-08-10] MEDS: NICOTINE 21 MG/24 HOURS TOPICAL PATCH TD SCH (09:56)
[2017-08-10] MEDS: hydrOXYzine PAMOATE 50 MG CAPSULE (FP) PO PRN ×2 (09:57→21:30)
[2017-08-10] MEDS: THIAMINE HCL 100 MG TABLET (FP) PO SCH (21:29)
[2017-08-10] MEDS: QUEtiapine FUMARATE 200 MG TABLET PO SCH (21:29)
[2017-08-11] MEDS ORDERED: METHADONE HCL 40 MG DISPERSABLE TABLET ONE (04:18)
[2017-08-11] MEDS ORDERED: METHADONE HCL 10 MG TABLET ONE (04:18)
[2017-08-11] MEDS: METHADONE 40 MG, METHADONE 10 MG PO SCH (05:53)
--- NOTE | 2017-08-11 07:55 | PN ---
Psychiatric Progress Note Vital Signs: Vital Signs Period Temp Pulse Resp BP Sys/Quiroga Pulse Ox Last 24 Hr 97.8 F 79-82 18-18 108-136/79-89 Date of Session: 08/11/17 Chief Complaint:: Discharge Note HPI: Patient addressing Sedative Dependence comorbid with Opoid dependence on Agonist Therapy, Nicotine Dependence and Generalized Anxiety Disorder ROS: HTN, Hearing impairment Current Medications: Active Medications Generic Name Dose Route Start Last Admin Trade Name Freq PRN Reason Stop Dose Admin Acetaminophen 650 mg 07/15/17 17:15 Tylenol - PO Q4H PRN PAIN Al Hydroxide/Mg Hydroxide 30 ml 07/15/17 17:15 08/02/17 23:59 Mylanta Oral Suspension - PO 30 ml Q6H PRN Administration DYSPEPSIA Baclofen 10 mg 07/15/17 22:00 08/10/17 21:28 Lioresal - PO 10 mg BID REUBEN Administration Diphenhydramine HCl 50 mg 07/15/17 17:15 08/04/17 21:26 Benadryl - PO 50 mg HSMR1 PRN Administration INSOMNIA Eucalyptus/Menthol/Phenol/Sorbitol 1 each 07/15/17 17:15 07/16/17 03:15 Cepastat Lozenge - MM 1 each Q4H PRN Administration SORE THROAT Guaifenesin 10 ml 07/15/17 17:15 Robitussin Dm - PO Q6H PRN COUGH Hydroxyzine Pamoate 50 mg 07/15/17 17:15 08/10/17 21:30 Vistaril - PO 50 mg Q4H PRN Administration AGITATION Ibuprofen 400 mg 07/15/17 17:15 Motrin - PO Q6H PRN SEVERE PAIN Loperamide HCl 4 mg 07/15/17 17:15 Imodium - PO Q6H PRN DIARRHEA Magnesium Citrate 300 ml 07/15/17 17:15 08/03/17 17:45 Citroma - PO 300 ml Q48H PRN Administration CONSTIPATION Magnesium Hydroxide 30 ml 07/15/17 17:15 07/23/17 21:40 Milk Of Magnesia - PO 30 ml DAILY PRN Administration CONSTIPATION Methadone HCl 40 mg/ Methadone 50 mg 08/05/17 06:00 08/11/17 05:53 HCl 10 mg PO 50 mg DAILY@0600 REUBEN Administration Nicotine 21 mg 07/16/17 10:00 08/10/17 09:56 Nicoderm Patch - TD Not Given DAILY REUBEN Nicotine Polacrilex 4 mg 07/15/17 17:15 08/09/17 09:43 Nicorette Gum - BC 4 mg Q2H PRN Administration NICOTINE REPLACEMENT RX Multivit/Folic Acid/Iron 1 tab 07/16/17 10:00 08/10/17 09:55 Vitamins (Sjr) - PO 1 tab DAILY REUBEN Administration Propranolol HCl 80 mg 07/16/17 10:00 08/10/17 09:56 Inderal La - PO 80 mg DAILY REUBEN Administration Pseudoephedrine/Triprolidine 1 combo 07/15/17 17:15 08/03/17 23:24 Actifed - PO 1 combo TID PRN Administration NASAL CONGESTION Quetiapine Fumarate 200 mg 07/28/17 22:00 08/10/17 21:29 Seroquel - PO 200 mg HS REUBEN Administration Thiamine HCl 100 mg 07/15/17 22:00 08/10/17 21:29 Vitamin B1 - PO 100 mg HS REUBEN Administration Current Side Effect: No Lab tests ordered: Yes Lab tests reviewed: Yes Provider note:: Patient will complete this program on 08/12/17. He has met his treatment goals and will continue to address his issues in outpatient treatment at [facility] at [address] [place] [address] and at [facility] in [place], [place]. Reports gaining insight into his addiction and has learned the tools to manage it better. He responded well to Seroquel 200 mg po HS. Script for 30 days supply of that medication will be electronicaly transmitted to [facility] at [address] [place] [address]. He is stable for discharge on 08/12/17 Total face to face time:: 35 Mental Status Exam - Mental Status Exam Alert and Oriented to: Time, Place, Person Cognitive Function: Fair Patient Appearance: Well Groomed Mood: Hopeful, Euthymic Affect: Appropriate Patient Behavior: Cooperative Speech Pattern: Clear Voice Loudness: Normal Thought Process: Intact, Goal Oriented Thought Disorder: Not Present Hallucinations: Denies Suicidal Ideation: Denies Homicidal Ideation: Denies Insight/Judgement: Fair Sleep: Fair Appetite: Good Muscle strength/Tone: Normal Gait/Station: Normal Psychiatric Treatment Plan - Problem List (1) Sedative, hypnotic or anxiolytic dependence Current Visit: Yes (2) Opioid dependence on agonist therapy Current Visit: No (3) Nicotine dependence Current Visit: Yes (4) Hard of hearing Current Visit: Yes Qualifiers: Hearing loss type: mixed conductive and sensorineural Laterality: bilateral Qualified Code(s): 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
[2017-08-11] MEDS: hydrOXYzine PAMOATE 50 MG CAPSULE (FP) PO PRN ×3 (09:58→21:50)
[2017-08-11] MEDS: BACLOFEN 10 MG TABLET (FP) PO SCH ×2 (09:58→21:50)
[2017-08-11] MEDS: PRENATAL VITAMINS W/ FOLIC ACID TABLET (FP) PO SCH (09:58)
[2017-08-11] MEDS: NICOTINE 21 MG/24 HOURS TOPICAL PATCH TD SCH (09:58)
[2017-08-11] MEDS: NICOTINE POLACRILEX 4 MG GUM BC PRN (10:00)
[2017-08-11] MEDS: QUEtiapine FUMARATE 200 MG TABLET PO SCH (21:50)
[2017-08-11] MEDS: THIAMINE HCL 100 MG TABLET (FP) PO SCH (21:50)
[2017-08-12] MEDS ORDERED: METHADONE HCL 10 MG TABLET ONE (03:56)
[2017-08-12] MEDS ORDERED: METHADONE HCL 40 MG DISPERSABLE TABLET ONE (03:56)
[2017-08-12] MEDS: METHADONE 40 MG, METHADONE 10 MG PO SCH (06:13)
[2017-08-12 06:59] VITALS: BP 154/98; PULSE 83
[2017-08-12] MEDS: PRENATAL VITAMINS W/ FOLIC ACID TABLET (FP) PO SCH (09:14)
[2017-08-12] MEDS: BACLOFEN 10 MG TABLET (FP) PO SCH (09:14)
[2017-08-12] MEDS: NICOTINE 21 MG/24 HOURS TOPICAL PATCH TD SCH (09:15)
== END 2017-08-12 09:45 | disposition home or self-care (01) | DRG 895 ==
LOC: YASAS 13:13 → Y3W 18:39
PROVIDERS: ADMIT Psychiatry & Neurology Psychiatry; ATTEND Psychiatry & Neurology Psychiatry
PROC: HZ42ZZZ Group Counseling for Substance Abuse Treatment, Cognitive-Behavioral (ICD-10-PCS; principal; 2017-07-15)
DX: F13.20 Sedative, hypnotic or anxiolytic dependence, uncomplicated (principal); K57.01 Diverticulitis of small intestine with perforation and abscess with bleeding; F11.20 Opioid dependence, uncomplicated; F17.210 Nicotine dependence, cigarettes, uncomplicated; F41.1 Generalized anxiety disorder; H90.6 Mixed conductive and sensorineural hearing loss, bilateral; I10 Essential (primary) hypertension; Z88.0 Allergy status to penicillin; Z91.5 Personal history of self-harm
CPT/HCPCS: 36415; 80053; 81003; 85027; 86593; 93005; 93010; J0475